=== PATIENT | male | born 1935 | race Caucasian/White ===

== ENCOUNTER 2016-08-02 15:49 | Inpatient (IN) ==
[2016-08-03] MEDS ORDERED: Bisacodyl 10 MG RECTAL SUPPOSITORY RC PRN (18:06)
[2016-08-03] MEDS: Sennosides/Docusate Sodium TABLET PO SCH (21:18)
[2016-08-03] MEDS: Furosemide 20 MG TABLET PO SCH (21:18)
[2016-08-03 22:55] LABS: Bilirubin,Urine Negative (Negative); Blood,Urine Small (Negative); Clarity,Urine Slightly Cloudy (Clear); Color,Urine Yellow (Yellow); Glucose,Urine (UA) Normal (Normal); Ketones,Urine Negative (Negative); Leukocyte Esterase,Urine Negative (Negative); Nitrite,Urine Negative (Negative); PH,Urine 5.5 pH Units (5.0-8.0); Protein,Urine Negative (Neg-Trace); Urobilinogen,Urine Normal (Normal)
[2016-08-04 06:12] LABS: Basophils # 0.1 K/mcL (0.0-0.2); Basophils % 1.3 %; Eosinophils # 0.2 K/mcL (0.0-0.6); Eosinophils % 4.1 %; Hemoglobin 10.7 g/dL (12.9-16.9); Immature Granulocytes % 0.2 % (0-4); Lymphocytes % 17.4 %; Mean Corpuscular HGB Conc 31.5 g/dL (31.6-35.5); Mean Corpuscular Hemoglobin 29.7 pg (28.0-33.3); Mean Corpuscular Volume 94.4 fL (83.0-100.0); Mean Platelet Volume 10.8 fL (9.4-12.4); Monocytes # 0.4 K/mcL (0.0-1.3); Monocytes % 6.5 %; Neutrophils # 3.9 K/mcL (1.6-8.9); Platelet Count 108 K/mcL (140-400); Red Cell Distribution Width 16.1 % (11.5-14.5); Segmented Neutrophils % 70.5 %
[2016-08-04 06:13] LABS: INR 1.2; Prothrombin Time 12.5 Seconds (9.4-12.1)
[2016-08-04 06:15] LABS: Activated Partial Thrombo Time 31.8 Seconds (26.0-36.0)
[2016-08-04 06:18] LABS: Calcium 8.9 mg/dL (8.6-10.8); Potassium 4.6 mEq/L (3.5-4.5)
[2016-08-04] MEDS: Sennosides/Docusate Sodium TABLET PO SCH ×2 (08:08→19:58)
[2016-08-04] MEDS: Aspirin 81 MG TAB.CHEW PO SCH (08:08)
[2016-08-04] MEDS: Furosemide 20 MG TABLET PO SCH ×2 (08:08→19:58)
[2016-08-04] MEDS: Ascorbic Acid 500 MG TABLET PO SCH (08:08)
[2016-08-04] MEDS: Metoprolol XL (24 HR) Succ 25 MG TAB.ER.24H PO SCH (08:08)
[2016-08-04] MEDS: Acetaminophen 325 MG TABLET PO PRN (08:17)
--- NOTE | 2016-08-04 11:54 | Internal Med History&Physical ---
Date of Encounter: 08/04/16 Time of Encounter: 11:52 Assessment and Plan (1) CVA (cerebral vascular accident) Current visit: Yes Status: Acute Patient has Qualifiers: CVA mechanism: thrombosis Qualified Code(s): I63.00 - Cerebral infarction due to thrombosis of unspecified precerebral artery Internal Medicine - H&P: HPI Chief complaint: CVA Admitted From: Hospital to Hospital Transfer Plans for Post Hospital Care: Home History of present illness: Mr. Canas is a 80 year old male Patient had been experiencing some vision changes and some ambulatory disabilities. Presented to the hospital was admitted then transferred here for rehabilitation. He had seventh nerve palsy although this seems improved he can close his eye now Past Med Surg Social Fam HX - Past Medical History Medical history: CHF, COPD, coronary artery disease, hyperlipidemia, hypertension, myocardial infarction, renal disease Psychiatric history: no psych history - Past Surgical History Surgical History: angioplasty/stent, carotid endarterectomy, cataract, coronary bypass (CABG), LE vascular intervention, pacemaker/AICD - Social History Smoking Status: Former smoker Smokeless Tobacco Status: No Alcohol use: occasionally Drug use: none - Family History Mother Living Status: Cause of : cardiac Internal Medicine - H&P: Meds Ascorbic Acid [Vitamin C with Chasity Hips] 1,000 mg PO DAILY 08/03/16 [History] Aspirin 81 mg PO DAILY 08/03/16 [History] Clopidogrel [Plavix] 75 mg PO DAILY 08/03/16 [History] Ferrous Sulfate [Iron] 325 mg PO DAILY 08/03/16 [History] Furosemide [Lasix] 20 mg PO BID 08/03/16 [History] Guaifenesin [Mucinex] 600 mg PO DAILY 08/03/16 [History] Lisinopril 2.5 mg PO DAILY 08/03/16 [History] Metoprolol Succinate 25 mg PO DAILY 08/03/16 [History] Omeprazole 20 mg PO DAILY 08/03/16 [History] Potassium Chloride [Klor-Con 10] 10 meq PO DAILY 08/03/16 [History] Simvastatin [Zocor] 20 mg PO HS 08/03/16 [History] Vitamin E 1,000 unit PO DAILY 08/03/16 [History] Allergies No Known Allergies Allergy (Verified 03/11/15 00:00) All Systems PM: A 10-system review of systems was performed and is negative for pertinent findings except as documented above in the HPI. - Constitutional Vitals: Temp Pulse Resp BP Pulse Ox 97.4 F L 67 16 169/83 96 08/04/16 07:00 08/04/16 07:00 08/04/16 07:00 08/04/16 07:00 08/04/16 07:00 - Head Head exam: Present: atraumatic, normal inspection, normocephalic - Neck Neck exam general surgery: Present: supple, trachea midline. Absent: lymphadenopathy - Respiratory Respiratory exam: Present: CTAB. Absent: accessory muscle use, rales, rhonchi, wheezes - Cardiovascular Cardiovascular exam: Present: RRR, +S1, +S2. Absent: diastolic murmur, gallop, rubs, systolic murmur - GI/Abdominal GI/Abdominal exam: Present: normal bowel sounds, soft, no peritoneal signs. Absent: distended, tenderness - Neurological Exam Neurological exam: Present: altered (Patient had seventh nerve palsy and was unable to completely shut his outside. Now with some effort he can shut his right eye. We are continuing use lubrication etc.), CN II-XII intact, oriented X3, no focal deficits. Absent: pronater drift, facial droop, speech deficit Internal Med - H&P Results - Labs CBC & Chem 7: 08/04/16 05:40 08/04/16 05:40 Labs: Short CBC 08/04/16 Range/Units 05:40 WBC 5.6 (4.3-11.1) K/mcL Hgb 10.7 L (12.9-16.9) g/dL Hct 34.0 L (37.5-50.1) % Plt Count 108 L (140-400) K/mcL Neutrophils # 3.9 (1.6-8.9) K/mcL BMP 08/04/16 05:40 Sodium 139 Potassium 4.6 H Chloride 106 Carbon Dioxide 26 BUN 28 H Creatinine 1.41 H Glucose 86 Calcium 8.9 Urine 08/03/16 Range/Units 22:00 Urine Color Yellow (Yellow) Urine Clarity Slightly Cloudy A (Clear) Urine pH 5.5 (5.0-8.0) pH Units Ur Specific [place] 1.020 (1.010-1.025) Urine Protein Negative (Neg-Trace) mg/dL Urine Glucose (UA) Normal (Normal) mg/dL Lab is stable
[2016-08-04] MEDS: Lacri-Lube 3.5 GM TUBE RIGHT EYE PRN (20:00)
[2016-08-05] MEDS: Ascorbic Acid 500 MG TABLET PO SCH (09:05)
[2016-08-05] MEDS: Aspirin 81 MG TAB.CHEW PO SCH (09:05)
[2016-08-05] MEDS: Metoprolol XL (24 HR) Succ 25 MG TAB.ER.24H PO SCH (09:05)
[2016-08-05] MEDS: Furosemide 20 MG TABLET PO SCH ×2 (09:05→20:17)
[2016-08-05] MEDS: Sennosides/Docusate Sodium TABLET PO SCH ×2 (09:05→20:16)
[2016-08-05] MEDS: Acetaminophen 325 MG TABLET PO PRN ×2 (09:13→20:17)
--- NOTE | 2016-08-05 10:19 | Internal Med Progress Note ---
Date of Encounter: 08/05/16 Time of Encounter: 10:16 - Assessment and plan (1) CVA (cerebral vascular accident) Current Visit: Yes Status: Acute Assessment and plan: Residual diplopia but is improving. Residual right facial droop. Difficulty would endurance and balance. PT and OT to continue to work on the above treatment improved ADLs Qualifiers: CVA mechanism: occlusion Precerebral and cerebral artery: middle cerebral artery Laterality of affected vessel: unspecified Qualified Code(s): I63.519 - Cerebral infarction due to unspecified occlusion or stenosis of unspecified middle cerebral artery (2) Diabetes Current Visit: Yes Status: Chronic Assessment and plan: Accu-Chek controlled. We will continue to monitor. Qualifiers: Diabetes mellitus type: type 2 Diabetes mellitus complication status: with unspecified complications Diabetes mellitus fci insulin use: with terminal system operator use Qualified Code(s): E11.8 - Type 2 diabetes mellitus with unspecified complications; Z79.4 - retirement (current) use of insulin - Time Spent With Patient less than 15 minutes - Subjective Interval history: Patient feeling better today. Visual abnormality improving. Still has some problems with endurance and balance. Still has dyspnea on exertion. No shortness of breath. No chest pain. No nausea vomiting. Good oral intake. - Constitutional Vitals: Temp Pulse Resp BP Pulse Ox 97.7 F 76 14 158/88 97 08/05/16 06:47 08/05/16 06:47 08/05/16 06:47 08/05/16 06:47 08/05/16 06:47 General appearance: Present: A&O X 3, pleasant, no acute distress - Respiratory Respiratory exam: Present: CTAB. Absent: accessory muscle use, rales, rhonchi, wheezes - Cardiovascular Cardiovascular exam: Present: RRR, +S1, +S2. Absent: diastolic murmur, gallop, rubs, systolic murmur - GI/Abdominal GI/Abdominal exam: Present: normal bowel sounds, soft, no peritoneal signs. Absent: distended, tenderness - Extremities Exam Extremities exam: Present: warm, radial pulses palpable and symetrical. Absent : calf tenderness, cyanotic, pedal edema - Expanded Neurological Exam Patient oriented to: Present: person, place Ataxia: Present: yes - Skin Skin exam: Present: dry, intact Internal Medicine: Result - Labs CBC & Chem 7: 08/04/16 05:40 02/03/17 05:40 - ABG Interpretation ABG results: PT/INR, D-dimer PT 12.5 Seconds (9.4-12.1) H 08/04/16 05:40 Consult Discharge Plan - Plan Referrals: NO,PCP [Primary Care Provider] -
[2016-08-06] MEDS: Ascorbic Acid 500 MG TABLET PO SCH (08:38)
[2016-08-06] MEDS: Aspirin 81 MG TAB.CHEW PO SCH (08:38)
[2016-08-06] MEDS: Sennosides/Docusate Sodium TABLET PO SCH ×2 (08:38→20:08)
[2016-08-06] MEDS: Furosemide 20 MG TABLET PO SCH ×2 (08:39→20:09)
[2016-08-06] MEDS: Metoprolol XL (24 HR) Succ 25 MG TAB.ER.24H PO SCH (08:39)
--- NOTE | 2016-08-06 11:10 | Internal Med Progress Note ---
Date of Encounter: 08/06/16 Time of Encounter: 11:09 - Assessment and plan (1) CVA (cerebral vascular accident) Current Visit: Yes Status: Acute Assessment and plan: Residual diplopia but is improving. Residual right facial droop. Difficulty would endurance and balance. PT and OT to continue to work on the above treatment improved ADLs Qualifiers: CVA mechanism: occlusion Precerebral and cerebral artery: middle cerebral artery Laterality of affected vessel: unspecified Qualified Code(s): I63.519 - Cerebral infarction due to unspecified occlusion or stenosis of unspecified middle cerebral artery (2) Diabetes Current Visit: Yes Status: Chronic Assessment and plan: Accu-Chek controlled. We will continue to monitor. Qualifiers: Diabetes mellitus type: type 2 Diabetes mellitus complication status: with unspecified complications Diabetes mellitus retirement insulin use: with medical terminologist use Qualified Code(s): E11.8 - Type 2 diabetes mellitus with unspecified complications; Z79.4 - intermediate (current) use of insulin - Subjective Interval history: Patient feeling better today. Visual abnormality improving. Still has some problems with endurance and balance. Still has dyspnea on exertion. No shortness of breath. No chest pain. No nausea vomiting. Good oral intake. - Constitutional Vitals: Temp Pulse Resp BP Pulse Ox 97.8 F 59 18 137/80 95 08/06/16 06:51 08/06/16 06:51 08/06/16 06:51 08/06/16 06:51 08/06/16 06:51 General appearance: Present: A&O X 3, pleasant, no acute distress - Respiratory Respiratory exam: Present: CTAB. Absent: accessory muscle use, rales, rhonchi, wheezes - Cardiovascular Cardiovascular exam: Present: RRR, +S1, +S2. Absent: diastolic murmur, gallop, rubs, systolic murmur - GI/Abdominal GI/Abdominal exam: Present: normal bowel sounds, soft, no peritoneal signs. Absent: distended, tenderness - Neurological Exam Neurological exam: Present: alert, facial droop Internal Medicine: Result - Labs CBC & Chem 7: 08/04/16 05:40 08/04/16 05:40 - ABG Interpretation ABG results: PT/INR, D-dimer PT 12.5 Seconds (9.4-12.1) H 08/04/16 05:40 Consult Discharge Plan - Plan Referrals: NO,PCP [Primary Care Provider] -
[2016-08-06] MEDS: Lacri-Lube 3.5 GM TUBE RIGHT EYE PRN ×2 (17:25→20:09)
[2016-08-06] MEDS: Acetaminophen 325 MG TABLET PO PRN (20:09)
[2016-08-07] MEDS: Acetaminophen 325 MG TABLET PO PRN ×3 (01:27→19:47)
[2016-08-07 05:25] LABS: Basophils # 0.1 K/mcL (0.0-0.2); Basophils % 0.9 %; Eosinophils # 0.2 K/mcL (0.0-0.6); Eosinophils % 3.5 %; Hematocrit 32.9 % (37.5-50.1); Hemoglobin 10.5 g/dL (12.9-16.9); Immature Granulocytes % 0.5 % (0-4); Lymphocytes % 17.2 %; Mean Corpuscular HGB Conc 31.9 g/dL (31.6-35.5); Mean Platelet Volume 11.4 fL (9.4-12.4); Monocytes # 0.5 K/mcL (0.0-1.3); Monocytes % 8.3 %; Platelet Count 141 K/mcL (140-400); Red Cell Distribution Width 16.4 % (11.5-14.5); Segmented Neutrophils % 69.6 %
[2016-08-07 05:39] LABS: Potassium 4.6 mEq/L (3.5-4.5)
[2016-08-07] MEDS: Metoprolol XL (24 HR) Succ 25 MG TAB.ER.24H PO SCH (09:32)
[2016-08-07] MEDS: Aspirin 81 MG TAB.CHEW PO SCH (09:32)
[2016-08-07] MEDS: Sennosides/Docusate Sodium TABLET PO SCH ×2 (09:32→19:48)
[2016-08-07] MEDS: Ascorbic Acid 500 MG TABLET PO SCH (09:32)
[2016-08-07] MEDS: Furosemide 20 MG TABLET PO SCH ×2 (09:33→19:48)
[2016-08-07] MEDS: Lacri-Lube 3.5 GM TUBE RIGHT EYE PRN ×2 (09:35→19:47)
--- NOTE | 2016-08-07 13:44 | Internal Med Progress Note ---
Date of Encounter: 08/07/16 Time of Encounter: 13:43 - Assessment and plan (1) CVA (cerebral vascular accident) Current Visit: Yes Status: Acute Qualifiers: CVA mechanism: occlusion Precerebral and cerebral artery: middle cerebral artery Laterality of affected vessel: unspecified Qualified Code(s): I63.519 - Cerebral infarction due to unspecified occlusion or stenosis of unspecified middle cerebral artery - Time Spent With Patient less than 15 minutes - Subjective Interval history: Mr. Canas is doing well with a walker and working with the therapist. He still has definite deficits with his seventh nerve palsy - Constitutional Vitals: Temp Pulse Resp BP Pulse Ox 97.8 F 63 18 131/75 94 L 08/07/16 08:53 08/07/16 08:53 08/07/16 08:53 08/07/16 08:53 08/07/16 08:53 General appearance: Present: A&O X 3, pleasant, no acute distress - Head Head exam: Present: atraumatic, normal inspection, normocephalic - Neck Neck exam general surgery: Present: supple, trachea midline. Absent: lymphadenopathy - Respiratory Respiratory exam: Present: CTAB. Absent: accessory muscle use, rales, rhonchi, wheezes - Cardiovascular Cardiovascular exam: Present: RRR, +S1, +S2. Absent: diastolic murmur, gallop, rubs, systolic murmur Internal Medicine: Result - Labs CBC & Chem 7: 08/07/16 04:35 08/07/16 04:35 Labs: Short CBC 08/07/16 Range/Units 04:35 WBC 5.8 (4.3-11.1) K/mcL Hgb 10.5 L (12.9-16.9) g/dL Hct 32.9 L (37.5-50.1) % Plt Count 141 (140-400) K/mcL Neutrophils # 4.0 (1.6-8.9) K/mcL BMP 08/07/16 04:35 Sodium 138 Potassium 4.6 H Chloride 99 Carbon Dioxide 30 H BUN 47 H D Creatinine 1.54 H Glucose 83 Calcium 9.0 I will have to watch his BUN and creatinine. He may have some chronic failure but I will follow-up - ABG Interpretation ABG results: PT/INR, D-dimer PT 12.5 Seconds (9.4-12.1) H 08/04/16 05:40 Consult Discharge Plan - Plan Referrals: NO,PCP [Primary Care Provider] -
[2016-08-08] MEDS: Sennosides/Docusate Sodium TABLET PO SCH ×2 (08:24→20:00)
[2016-08-08] MEDS: Ascorbic Acid 500 MG TABLET PO SCH (08:24)
[2016-08-08] MEDS: Aspirin 81 MG TAB.CHEW PO SCH (08:25)
[2016-08-08] MEDS: Acetaminophen 325 MG TABLET PO PRN ×2 (08:25→23:58)
[2016-08-08] MEDS: Metoprolol XL (24 HR) Succ 25 MG TAB.ER.24H PO SCH (08:25)
[2016-08-08] MEDS: Furosemide 20 MG TABLET PO SCH ×2 (08:25→20:00)
[2016-08-08] MEDS: Lacri-Lube 3.5 GM TUBE RIGHT EYE PRN ×2 (13:05→20:09)
--- NOTE | 2016-08-08 13:34 | Internal Med Progress Note ---
Date of Encounter: 08/08/16 Time of Encounter: 13:32 - Assessment and plan (1) CVA (cerebral vascular accident) Current Visit: Yes Status: Acute Assessment and plan: Patient still has a seventh nerve palsy but is working well with PT OT and TR. Qualifiers: CVA mechanism: occlusion Precerebral and cerebral artery: middle cerebral artery Laterality of affected vessel: unspecified Qualified Code(s): I63.519 - Cerebral infarction due to unspecified occlusion or stenosis of unspecified middle cerebral artery - Time Spent With Patient less than 15 minutes - Subjective Interval history: Mr. Canas is doing well with a walker and working with the therapist. He still has definite deficits with his seventh nerve palsy. Patient's only request today was an ointment for his eye. - Constitutional Vitals: Temp Pulse Resp BP Pulse Ox 97.7 F 67 18 134/81 93 L 08/08/16 07:50 08/08/16 07:50 08/08/16 07:50 08/08/16 07:50 08/08/16 07:50 General appearance: Present: A&O X 3, pleasant, no acute distress - Head Head exam: Present: atraumatic, normal inspection, normocephalic - Neck Neck exam general surgery: Present: supple, trachea midline. Absent: lymphadenopathy - Respiratory Respiratory exam: Present: CTAB. Absent: accessory muscle use, rales, rhonchi, wheezes - Cardiovascular Cardiovascular exam: Present: RRR, +S1, +S2. Absent: diastolic murmur, gallop, rubs, systolic murmur - GI/Abdominal GI/Abdominal exam: Present: normal bowel sounds, soft, no peritoneal signs. Absent: distended, tenderness Internal Medicine: Result - Labs CBC & Chem 7: 08/07/16 04:35 08/07/16 04:35 Labs: Follow-up lab will be done to follow BUN etc. - ABG Interpretation ABG results: PT/INR, D-dimer PT 12.5 Seconds (9.4-12.1) H 08/04/16 05:40 Consult Discharge Plan - Plan Referrals: NO,PCP [Primary Care Provider] -
[2016-08-09 05:50] LABS: Calcium 9.2 mg/dL (8.6-10.8); Potassium 4.6 mEq/L (3.5-4.5)
[2016-08-09] MEDS: Aspirin 81 MG TAB.CHEW PO SCH (08:16)
[2016-08-09] MEDS: Acetaminophen 325 MG TABLET PO PRN (08:16)
[2016-08-09] MEDS: Sennosides/Docusate Sodium TABLET PO SCH ×2 (08:16→21:14)
[2016-08-09] MEDS: Ascorbic Acid 500 MG TABLET PO SCH (08:16)
[2016-08-09] MEDS: Furosemide 20 MG TABLET PO SCH ×2 (08:16→21:13)
[2016-08-09] MEDS: Metoprolol XL (24 HR) Succ 25 MG TAB.ER.24H PO SCH (08:17)
[2016-08-09] MEDS: Lacri-Lube 3.5 GM TUBE RIGHT EYE PRN (08:21)
--- NOTE | 2016-08-09 13:52 | Internal Med Progress Note ---
Date of Encounter: 08/09/16 Time of Encounter: 13:50 - Assessment and plan (1) CVA (cerebral vascular accident) Current Visit: Yes Status: Acute Assessment and plan: Patient's working with PT OT TR on a daily basis Qualifiers: CVA mechanism: occlusion Precerebral and cerebral artery: middle cerebral artery Laterality of affected vessel: unspecified Qualified Code(s): I63.519 - Cerebral infarction due to unspecified occlusion or stenosis of unspecified middle cerebral artery - Time Spent With Patient less than 15 minutes - Subjective Interval history: Mr. Canas is doing well with a walker and working with the therapist. He still has definite deficits with his seventh nerve palsy. Patient's only request today was an ointment for his eye. He is requesting a driving exam which will be done by OT. I will make him recommendation. I will think the patient should be left alone nor do I believe he should be driving - Constitutional Vitals: Temp Pulse Resp BP Pulse Ox 97.0 F L 66 18 159/80 95 08/09/16 07:37 08/09/16 13:00 08/09/16 13:00 08/09/16 13:00 08/09/16 13:00 General appearance: Present: A&O X 3, pleasant, no acute distress - Head Head exam: Present: atraumatic, normal inspection, normocephalic - Neck Neck exam general surgery: Present: supple, trachea midline. Absent: lymphadenopathy - Respiratory Respiratory exam: Present: CTAB. Absent: accessory muscle use, rales, rhonchi, wheezes - Cardiovascular Cardiovascular exam: Present: RRR, +S1, +S2. Absent: diastolic murmur, gallop, rubs, systolic murmur Internal Medicine: Result - Labs CBC & Chem 7: 08/07/16 04:35 08/09/16 05:15 Labs: BMP 08/09/16 05:15 Sodium 137 Potassium 4.6 H Chloride 98 Carbon Dioxide 30 H BUN 48 H Creatinine 1.59 H Glucose 87 Calcium 9.2 - ABG Interpretation ABG results: PT/INR, D-dimer PT 12.5 Seconds (9.4-12.1) H 08/04/16 05:40 Consult Discharge Plan - Plan Referrals: NO,PCP [Primary Care Provider] -
--- NOTE | 2016-08-09 15:11 | Physcial Medicine-Consult Note ---
Date of Encounter: 08/10/16 Time of Encounter: 15:05 Physical Medicine - AP (1) CVA (cerebral vascular accident) Status: Acute Assessment and plan: 1. Rehabilitation: Mr. Canas is doing well with therapy. His balance has improved since admission. He is ambulating with a wheeled walker 115 with SBA. Patient fatigues, but recovers well after rest breaks. He was trialed with a cane for ambulation and was not safe at this time. Frequent LOB. Would recommend additional inpatient stay to address safe ambulation with a walker. No issues with dysphagia. Patient will continue with intensive PT/OT/TR to work on ADLs, endurance and safety. Plan for discharge to home 08/16/16. Code(s): I63.9 - Cerebral infarction, unspecified SNOMED Code(s): 991963810 Physical Medicine - HPI - Data of Consult Consult date: 08/09/16 Requesting Physician: Senthil Bauer DO Primary Care Provider: PCP NO - Consult Narrative Reason for consult: CVA History of present illness: Mr. Canas is a 80 year old male who was admitted for inpatient rehabilitation after sustaining a right cerebellar acute infarct with central hemorrhage. Patient has a PMHx significant for chronic afib, taking plavix and aspirin. Patient presented with complaints of right facial droop, unsteady gait, ataxia, and dysarthria. He was stabilized and transferred for inpatient rehabilitation. CC: Senthil Bauer DO Past Med Surg Social Fam - Past Medical History Medical history: CHF, COPD, coronary artery disease, hyperlipidemia, hypertension, myocardial infarction, renal disease Psychiatric history: no psych history - Past Surgical History Surgical History: angioplasty/stent, carotid endarterectomy, cataract, coronary bypass (CABG), LE vascular intervention, pacemaker/AICD - Social History Smoking Status: Former smoker Smokeless Tobacco Status: No Alcohol use: occasionally Drug use: none - Family History Mother Living Status: Cause of : cardiac Medications and Allergies Ascorbic Acid [Vitamin C with Chasity Hips] 1,000 mg PO DAILY 08/03/16 [History] Aspirin 81 mg PO DAILY 08/03/16 [History] Clopidogrel [Plavix] 75 mg PO DAILY 08/03/16 [History] Ferrous Sulfate [Iron] 325 mg PO DAILY 08/03/16 [History] Furosemide [Lasix] 20 mg PO BID 08/03/16 [History] Guaifenesin [Mucinex] 600 mg PO DAILY 08/03/16 [History] Lisinopril 2.5 mg PO DAILY 08/03/16 [History] Metoprolol Succinate 25 mg PO DAILY 08/03/16 [History] Omeprazole 20 mg PO DAILY 08/03/16 [History] Potassium Chloride [Klor-Con 10] 10 meq PO DAILY 08/03/16 [History] Simvastatin [Zocor] 20 mg PO HS 08/03/16 [History] Vitamin E 1,000 unit PO DAILY 08/03/16 [History] Allergies No Known Allergies Allergy (Verified 03/11/15 00:00) - Constitutional Constitutional: Present: fatigue - Cardiovascular Cardiovascular: Absent: chest pain, chest pain at rest, chest pain with activity , diaphoresis, dyspnea - Respiratory Respiratory: Absent: cough, dyspnea - Gastrointestinal Gastrointestinal: Absent: abdominal pain - Musculoskeletal Musculoskeletal: Absent: abnormal gait, muscle weakness - Neurological Neurological: Present: abnormal gait Physical Medicine - Exam - Constitutional Vitals: Temp Pulse Resp BP Pulse Ox 97.0 F L 66 18 159/80 95 08/09/16 07:37 08/09/16 13:00 08/09/16 13:00 08/09/16 13:00 08/09/16 13:00 - Head Head exam: Present: atraumatic, normal inspection Additional comments: Patient is alert and oriented. Answers questions appropriately. Follows multistep commands appropriately. Mild right facial droop. Right eye does not close completely. EOMI. No visual field deficits. No double vision. - Respiratory Respiratory exam: Present: CTAB - Cardiovascular Cardiovascular exam: Present: RRR - GI/Abdominal GI/Abdominal exam: Present: normal bowel sounds, soft. Absent: tenderness - Extremities Exam Extremities exam: Present: full ROM. Absent: calf tenderness Additional comments: Motor strength is 5/5 in the bilateral upper and lower limbs. Upper and lower limb reflexes are unelicitable. Physical Medicine - Results - Labs CBC & Chem 7: 08/07/16 04:35 08/10/16 05:05 Labs: BMP 08/09/16 05:15 Sodium 137 Potassium 4.6 H Chloride 98 Carbon Dioxide 30 H BUN 48 H Creatinine 1.59 H Glucose 87 Calcium 9.2 Consult Discharge Plan - Plan Referrals: NO,PCP [Primary Care Provider] -
[2016-08-10 05:48] LABS: Calcium 9.1 mg/dL (8.6-10.8); Potassium 4.3 mEq/L (3.5-4.5)
[2016-08-10] MEDS: Sennosides/Docusate Sodium TABLET PO SCH ×2 (08:47→20:46)
[2016-08-10] MEDS: Ascorbic Acid 500 MG TABLET PO SCH (08:47)
[2016-08-10] MEDS: Aspirin 81 MG TAB.CHEW PO SCH (08:47)
[2016-08-10] MEDS: Furosemide 20 MG TABLET PO SCH ×2 (08:47→20:45)
[2016-08-10] MEDS: Metoprolol XL (24 HR) Succ 25 MG TAB.ER.24H PO SCH (08:47)
[2016-08-10] MEDS: Lacri-Lube 3.5 GM TUBE RIGHT EYE PRN ×2 (08:51→20:46)
--- NOTE | 2016-08-10 14:05 | Internal Med Progress Note ---
Date of Encounter: 08/10/16 Time of Encounter: 14:05 - Assessment and plan (1) CVA (cerebral vascular accident) Current Visit: Yes Status: Acute Assessment and plan: Patient has CVA he is improving but were concerned about him being alone he still fall risk and also have a driving test tomorrow. Mobile opinion that he should not be independent. Qualifiers: CVA mechanism: occlusion Precerebral and cerebral artery: middle cerebral artery Laterality of affected vessel: unspecified Qualified Code(s): I63.519 - Cerebral infarction due to unspecified occlusion or stenosis of unspecified middle cerebral artery - Time Spent With Patient less than 15 minutes - Subjective Interval history: Mr. Canas is declined stating any longer be discharged tomorrow this family - Constitutional Vitals: Temp Pulse Resp BP Pulse Ox 97.0 F L 62 16 138/74 95 08/10/16 07:18 08/10/16 07:18 08/10/16 07:18 08/10/16 07:18 08/10/16 07:18 General appearance: Present: A&O X 3, pleasant, no acute distress - Head Head exam: Present: atraumatic, normal inspection, normocephalic - Neck Neck exam general surgery: Present: supple, trachea midline. Absent: lymphadenopathy - Respiratory Respiratory exam: Present: CTAB. Absent: accessory muscle use, rales, rhonchi, wheezes - Cardiovascular Cardiovascular exam: Present: RRR, +S1, +S2. Absent: diastolic murmur, gallop, rubs, systolic murmur - GI/Abdominal GI/Abdominal exam: Present: normal bowel sounds, soft, no peritoneal signs. Absent: distended, tenderness Internal Medicine: Result - Labs CBC & Chem 7: 08/07/16 04:35 08/10/16 05:05 Labs: BMP 08/10/16 05:05 Sodium 138 Potassium 4.3 Chloride 98 Carbon Dioxide 29 BUN 51 H Creatinine 1.80 H Glucose 85 Calcium 9.1 Recheck BUN/creatinine - ABG Interpretation ABG results: PT/INR, D-dimer PT 12.5 Seconds (9.4-12.1) H 08/04/16 05:40 - VTE Documentation of Mechanical Device: Graduated compression elastic hosiery Consult Discharge Plan - Plan Referrals: NO,PCP [Primary Care Provider] -
[2016-08-11 05:38] LABS: Calcium 8.9 mg/dL (8.6-10.8); Potassium 4.4 mEq/L (3.5-4.5)
[2016-08-11 07:18] VITALS: BP 139/85
[2016-08-11] MEDS: Aspirin 81 MG TAB.CHEW PO SCH (08:44)
[2016-08-11] MEDS: Ascorbic Acid 500 MG TABLET PO SCH (08:44)
[2016-08-11] MEDS: Furosemide 20 MG TABLET PO SCH (08:44)
[2016-08-11] MEDS: Metoprolol XL (24 HR) Succ 25 MG TAB.ER.24H PO SCH (08:44)
[2016-08-11] MEDS: Sennosides/Docusate Sodium TABLET PO SCH (08:44)
--- NOTE | 2016-08-11 13:42 | Discharge Summary ---
Date of Encounter: 08/11/16 Time of Encounter: 13:40 - Discharge Diagnosis (1) CVA (cerebral vascular accident) Priority: Primary Status: Acute Comments: CVA patient's doing well going home with the family today. He did have his driving test with the OT department and he did not past. Let the son know and that he should not be driving at this time. Qualifiers: CVA mechanism: occlusion Precerebral and cerebral artery: middle cerebral artery Laterality of affected vessel: unspecified Qualified Code(s): I63.519 - Cerebral infarction due to unspecified occlusion or stenosis of unspecified middle cerebral artery - Discharge Medications Home Medications: Ascorbic Acid [Vitamin C with Chasity Hips] 1,000 mg PO DAILY 08/03/16 [History] Aspirin 81 mg PO DAILY 08/03/16 [History] Clopidogrel [Plavix] 75 mg PO DAILY 08/03/16 [History] Ferrous Sulfate [Iron] 325 mg PO DAILY 08/03/16 [History] Furosemide [Lasix] 20 mg PO BID 08/03/16 [History] Guaifenesin [Mucinex] 600 mg PO DAILY 08/03/16 [History] Lisinopril 2.5 mg PO DAILY 08/03/16 [History] Metoprolol Succinate 25 mg PO DAILY 08/03/16 [History] Omeprazole 20 mg PO DAILY 08/03/16 [History] Potassium Chloride [Klor-Con 10] 10 meq PO DAILY 08/03/16 [History] Simvastatin [Zocor] 20 mg PO HS 08/03/16 [History] Vitamin E 1,000 unit PO DAILY 08/03/16 [History] Allergies/Adverse Reactions: Allergies No Known Allergies Allergy (Verified 03/11/15 00:00) Date of admission: 08/03/16 15:49 Primary care physician: PCP NO Consults: 08/03/16 17:41 Consult to Occupational Therapy [CONS] Routine Comment: Evaluate, develop and implement POC Consult to Physical Medicine/Rehab [CONS] Routine Reason for Consult: s/p cva Call Completed: Yes Consult to Physical Therapy [CONS] Routine Comment: Evaluate, develop and implement POC Consult to Recreational Therapy [CONS] Routine Comment: Evaluate, develop and implement POC Consult to Road Consultant [CONS] Routine Reason for SW Consult: d/c planning. follow up therapy after d/c Consult to Speech Therapy [CONS] Routine Comment: Evaluate, develop and implement POC Reason for Consult: s/p cva Call Completed: Yes 08/03/16 17:52 Consult to Physician [CONS] Routine Consulting Provider: Alisson Haro Reason for Consult: s/p cva Call Completed: Yes Discharging clinician: Senthil Bauer Anticipated date of discharge: 08/11/16 - Patient Status Disposition: Home, Self-Care Condition: Good Functional capacity at discharge: uses cane/walker Overall status at discharge: patient is progressing back to baseline - Discharge Instructions Follow Up With: Steve Pulido MD [Partnered Physician] - 08/17/16 10:30 am NO,PCP [Primary Care Provider] - - Diet and Activity Activity: ambulate only with your walker Diet: advance to your usual diet Interval History: She was transferred here after being admitted to the hospital and diagnosed with a CVA. He still has some vision problems and he should see another flotation operator. We will try to set that up Hospital course: Mr. Canas is a 80 year old male patient does work with PT OT TR speech. He still has some trouble with vision and there is still some mild deficits of the seventh cranial nerve. He is able to ambulate at speed up and down the [place] with no problem with a walker. - Time Spent with Patient Total time spent providing and/or coordinating discharge services: - Constitutional Vitals: Temp Pulse Resp BP Pulse Ox 98.0 F 65 16 139/85 95 08/11/16 07:18 08/11/16 07:18 08/11/16 07:18 08/11/16 07:18 08/11/16 07:18 General appearance: Present: A&O X 3, pleasant, no acute distress - Head Head exam: Present: atraumatic, normal inspection, normocephalic - Neck Neck exam general surgery: Present: supple, trachea midline. Absent: lymphadenopathy - Respiratory Respiratory exam: Present: CTAB. Absent: accessory muscle use, rales, rhonchi, wheezes - Cardiovascular Cardiovascular exam: Present: RRR, +S1, +S2. Absent: diastolic murmur, gallop, rubs, systolic murmur - VTE Documentation of Mechanical Device: Graduated compression elastic hosiery
== END 2016-08-11 15:30 | disposition home or self-care (01) | DRG 57 ==
LOC: INPGRE 08-03 15:49
PROVIDERS: ADMIT Internal Medicine; ATTEND Internal Medicine

== ENCOUNTER 2019-01-14 11:39 | Inpatient (IN) ==
--- NOTE | 2019-01-15 14:29 | Internal Med History&Physical ---
Date of Encounter: 01/15/19 Time of Encounter: 14:18 Assessment and Plan (1) Gangrene of toe of left foot Current visit: Yes Status: Acute Patient was treated at [facility] for gangrene and osteomyelitis of the second toe on his left foot. Toe appears darkened and necrotic in appearance. Patient states that his toe is very tender to touch. Patient continues on doxycycline for the next 4 days. Patient is continue follow up with his vascular surgeon. We will continue with current medications. Will evaluate patient's pain medicine. (2) CHF exacerbation Current visit: Yes Status: Acute Patient with a history of severe CHF. Patient with ICD/pacemaker in place. States that he is not a surgical candidate due to his CHF. Currently his lungs are clear. No pedal edema is noted. Patient denies any palpitations or chest discomforts. We will continue with his current medications. Qualifiers: Heart failure type: systolic Qualified Code(s): I50.23 - Acute on chronic systolic (congestive) heart failure (3) COPD exacerbation Current visit: Yes Status: Acute No acute issues. Patient remains on oxygen and states a history of oxygen dependency. Patient denies any dyspnea or productive cough. We will continue with current medications (4) Chronic kidney disease, stage 3 Current visit: Yes Status: Chronic No acute issues at this time. We will review patient's labs in the morning and continue with current medications. (5) Urinary obstruction Current visit: Yes Status: Chronic Patient performs self cathetering at home due to a long history of BPH. We will continue with current plan of care and monitor for signs of UTI. (6) Atrial fibrillation Current visit: No Status: Chronic No acute issues. Patient's heart rate remains controlled with ventricular rate less than 100. We will continue with current medications. Patient will remain on Lovenox Qualifiers: Atrial fibrillation type: paroxysmal Qualified Code(s): I48.0 - Paroxysmal atrial fibrillation (7) CAD (coronary artery disease) Current visit: Yes Status: Acute He states long history of coronary artery disease to include bypass surgery and coronary stents. Patient states that he has had no palpitations or chest discomforts. We will continue with current medications and monitor closely Qualifiers: Coronary Disease-Associated Artery/Lesion type: [place] artery [place] vs. transplanted heart: [place] heart Associated angina: without angina Qualified Code(s): I25.10 - Atherosclerotic heart disease of [place] coronary artery without angina pectoris (8) GERD (gastroesophageal reflux disease) Current visit: Yes Status: Chronic Patient states a long history of peptic ulcer disease to include bleeding ulcerations past. Patient will continue on Protonix. Qualifiers: Esophagitis presence: without esophagitis Qualified Code(s): K21.9 - Gastro-esophageal reflux disease without esophagitis Internal Medicine - H&P: HPI Chief complaint: weakness Admitted From: Hospital to Hospital Transfer Plans for Post Hospital Care: Home History of present illness: Mr. Canas is a 83 year old male, who was treated at [facility] for osteomyelitis of the second left toe. Patient has been treating a nonhealing ulcer of the left second toe for over a year. Patient states that he had had a fall at home prior to his admission during which time he had a laceration on the left anterior leg which required treatment at [facility] locally. After treatment patient was discharged to home. Over the period of several days began to develop pain to his left foot and also had developed hypotension. Patient has a long history of severe CHF, CAD, COPD, home oxygen dependency, ICD/pacemaker, CVA, atrial fibrillation, PUD, BPH and severe PVD. Patient was reevaluated by Jeannette and found to have osteomyelitis of the second toe and was transferred to [facility] for further evaluation and treatment. Patient was treated with IV antibiotics during his stay he continues on oral doxycycline for the next 4 days. Patient currently states that he has moderate pain to the left second toe which currently appears darkened and necrotic. Patient states that he was told that he was not a surgical candidate at this time and described a treatment plan by [facility] in which he would auto amputate the toe. Patient states that he was told he was a poor surgical candidate due to his severe CHF and pulmonary status. Patient appears relaxed and denies any dyspnea, palpitations or chest discomforts. Patient states that he has oxygen dependency but can usually ambulate greater than 100 feet before he becomes dyspneic. Patient states usually he develops claudication to the legs after ambulating distances. Hemal cardoso states long history of BPH and that he self catheters several times daily. Patient denies any other issues, but does state that he has had increased generalized weakness since his hospitalization. Past Med Surg Social Fam HX - Past Medical History Medical history: atrial fibrillation, cardiomyopathy, CHF, COPD, coronary artery disease, CVA, GI bleed, hyperlipidemia, hypertension Additional medical history: R eye droop from history of CVA, umbilical hernia. Psychiatric history: no psych history - Past Surgical History Surgical History: angioplasty/stent, carotid endarterectomy, cataract, coronary bypass (CABG), LE vascular intervention, orthopedic, other, pacemaker/AICD Additional surgical history: L carotid endoartectomy, left iliofemoral, multiple cardiac stents (unsure of how many), pacer, TPA administered for CVA. - Social History Smoking Status: Former smoker Smokeless Tobacco Status: No Alcohol use: none Drug use: none - Family History Mother Adopted: No Family Member Ethnicity: Non- Living Status: Hx Family Cardiac Disorders: Yes (Heart disease) Hx Family Respiratory Disorders: Yes Hx Family Cancer: Yes (Colon Cancer) Hx Family GI Disorders: No Hx Family Endocrine Disorder: No Hx Family Neuromuscular Disorders: No Hx Family Neurologic Disorders: No Hx Family HEENT Disorders: No Hx Family Autoimmune Disorders: No Brother Living Status: Still Living Hx Family Cardiac Disorders: Yes (HTN, PA) Internal Medicine - H&P: Meds Ascorbic Acid [Vitamin C with Chasity Hips] 1,000 mg PO DAILY 08/03/16 [History] Ferrous Sulfate [Iron] 325 mg PO DAILY@1200 08/03/16 [History] Simvastatin [Zocor] 20 mg PO HS 08/03/16 [History] Vitamin E 1,000 unit PO DAILY 08/03/16 [History] Loratadine [Allergy Relief] 10 mg PO DAILY PRN 06/12/17 [History] Cholecalciferol (D-3) [Vitamin D] 1,000 unit PO DAILY 11/13/17 [History] Aspirin Enteric Coated [Aspirin EC] 81 mg PO DAILY tablet. 11/23/17 [Rx] Clopidogrel Bisulfate [Plavix] 75 mg PO DAILY 30 Days #30 tablet 11/23/17 [Rx] Pantoprazole Sodium [Protonix] 40 mg PO BID 03/19/18 [History] Metoprolol XL (24 HR) Succ [Toprol Xl] 25 mg PO DAILY 06/01/18 [History] Lisinopril [Zestril] 5 mg PO DAILY 07/06/18 [History] Albuterol Sulfate [Proventil Inhaler] 2 puff IH Q6HR PRN 12/25/18 [History] Docusate [Colace] 100 mg PO DAILY PRN 12/25/18 [History] Simethicone [Gas-X] 80 mg PO QID PRN 12/25/18 [History] Furosemide [Lasix] 40 mg PO DAILY #30 tablet 12/27/18 [Rx] Spironolactone [Aldactone] 25 mg PO DAILY #30 tablet 12/27/18 [Rx] Allergy/AdvReac Type Severity Reaction Status Date / Time No Known Allergies Allergy Verified 12/03/18 14:44 All Systems PM: A 10-system review of systems was performed and is negative for pertinent findings except as documented above in the HPI. - Constitutional Constitutional: as per HPI, no chills, no fever(s), no night sweats - EENT Eyes: as per HPI, no change in vision, no discharge, no pain, no photophobia Ears: as per HPI, no ear discharge, no ear pain, no tinnitus Nose, mouth and throat: as per HPI, no dysphagia, no nasal discharge, no neck pain, no sore throat - Breasts Breasts: as per HPI - Cardiovascular Cardiovascular ROS IM: as per HPI, no chest pain, no diaphoresis, no dyspnea, no lightheadedness, no palpitations, no syncope - Respiratory Respiratory: as per HPI, no cough, no dyspnea, no wheezing, no excessive phlegm production - Gastrointestinal Gastrointestinal: as per HPI, no abdominal pain, no diarrhea, no hematemesis, no hematochezia, no melena, no nausea, no vomiting - Genitourinary Genitourinary ROS male: as per HPI - Musculoskeletal Musculoskeletal ROS IM: as per HPI, no numbness, no tingling - Integumentary Integumentary IM: as per HPI, no rash, no unusual bruising - Neurological Neurological ROS: as per HPI, no confusion, no convulsions, no focal weakness, no numbness, no tingling, no tremor(s) - Psychiatric Psychiatric: as per HPI - Hematologic/Lymphatic Hematologic/Lymphatic: no easy bruising - Constitutional General appearance: Present: A&O X 3, pleasant - Head Head exam: Present: atraumatic, normocephalic - Eye Eye exam: Present: PERRL, conjuntiva pink, sclera anicteric Pupils: Present: PERRL - Neck Neck exam general surgery: Present: supple, trachea midline. Absent: lymphadenopathy - Respiratory Respiratory exam: Present: CTAB. Absent: accessory muscle use, rales, rhonchi, wheezes - Cardiovascular Cardiovascular exam: Present: irregular rhythm, RRR, +S1, +S2, systolic murmur. Absent: diastolic murmur, gallop, rubs - GI/Abdominal GI/Abdominal exam: Present: normal bowel sounds, soft, no peritoneal signs. Absent: distended, tenderness - Extremities Exam Extremities exam: Present: warm, radial pulses palpable and symmetrical. Absent: calf tenderness, cyanotic, pedal edema Additional comments: Patient's left second toe appears darkened and is very painful to touch. - Neurological Exam Neurological exam: Present: CN II-XII intact, oriented X3, no focal deficits. Absent: pronater drift, facial droop, speech deficit - Skin Skin exam: Present: dry, intact
[2019-01-15] MEDS: Acetaminophen 325 MG TABLET PO PRN (22:04)
[2019-01-15] MEDS: Ascorbic Acid 500 MG TABLET PO SCH (22:05)
[2019-01-15] MEDS: Doxycycline 100 MG CAPSULE PO SCH (22:05)
[2019-01-16] MEDS: *HR* Enoxaparin 30 MG/0.3 ML SYRINGE SQ SCH (05:22)
[2019-01-16] MEDS: Cholecalciferol (D-3) 1,000 UNIT (25MCG) TABLET PO SCH (08:53)
[2019-01-16] MEDS: Loratadine 10 MG TABLET PO SCH (08:53)
[2019-01-16] MEDS: Vitamin E 200 UNIT (90MG) CAPSULE PO SCH (08:53)
[2019-01-16] MEDS: Ascorbic Acid 500 MG TABLET PO SCH ×2 (08:53→20:49)
[2019-01-16] MEDS: Furosemide 40 MG TABLET PO SCH (08:53)
[2019-01-16] MEDS: Doxycycline 100 MG CAPSULE PO SCH ×2 (08:53→20:48)
[2019-01-16] MEDS: Aspirin Enteric Coated 81 MG Tablet PO SCH (08:53)
[2019-01-16] MEDS: Metoprolol XL (24 HR) Succ 25 MG TAB.ER.24H PO SCH (08:53)
--- NOTE | 2019-01-16 12:39 | Internal Med Progress Note ---
Date of Encounter: 01/16/19 Time of Encounter: 12:37 - Assessment and plan (1) Gangrene Current Visit: Yes Status: Chronic Assessment and plan: Left toe. Follow up with infectious disease as scheduled. (2) Urinary obstruction Current Visit: Yes Status: Chronic Assessment and plan: Continue to self cath. Patient states he is in this for many years due to BPH. (3) Atrial fibrillation Current Visit: Yes Status: Chronic Assessment and plan: Rate and rhythm stable. Continue current medication. Continue Lovenox. Qualifiers: Atrial fibrillation type: paroxysmal Qualified Code(s): I48.0 - Paroxysmal atrial fibrillation (4) CAD (coronary artery disease) Current Visit: Yes Status: Acute Assessment and plan: Stable. Denies chest pain. Continue current medication. Qualifiers: Coronary Disease-Associated Artery/Lesion type: [place] artery [place] vs. transplanted heart: [place] heart Associated angina: without angina Qualified Code(s): I25.10 - Atherosclerotic heart disease of [place] coronary artery without angina pectoris (5) CKD (chronic kidney disease) Current Visit: Yes Status: Chronic Assessment and plan: Stable. Monitor labs. Avoid nephrotoxic agents. Qualifiers: Chronic kidney disease stage: stage 3 (moderate) Qualified Code(s): N18.3 - Chronic kidney disease, stage 3 (moderate) (6) CHF (congestive heart failure) Current Visit: Yes Status: Chronic Assessment and plan: Stable. Continue current medication. Monitor for decompensation. Qualifiers: Heart failure type: systolic Heart failure chronicity: chronic Qualified Code(s): I50.22 - Chronic systolic (congestive) heart failure - Time Spent With Patient less than 15 minutes - Subjective Interval history: Patient lying in bed. Has been participating well with therapy. Maintaining appetite and hydration, denies fever, chills, nausea vomiting or diarrhea. Denies shortness of breath or chest pain. Denies any pain. - Constitutional Vitals: Temp Pulse Resp BP Pulse Ox 98.8 F 65 16 121/65 96 01/16/19 11:00 01/16/19 11:00 01/16/19 11:00 01/16/19 11:00 01/16/19 11:00 General appearance: Present: A&O X 3, pleasant, no acute distress, answers questions appropriately - Head Head exam: Present: atraumatic, normocephalic - Eye Eye exam: Present: PERRL, conjuntiva pink, sclera anicteric Pupils: Present: PERRL - Neck Neck exam general surgery: Present: supple, trachea midline. Absent: lymphadenopathy - Respiratory Respiratory exam: Present: CTAB. Absent: accessory muscle use, rales, rhonchi, wheezes Additional comments: O2 per nasal cannula, diminished bilateral basis. - Cardiovascular Cardiovascular exam: Present: RRR, +S1, +S2. Absent: diastolic murmur, gallop, rubs, systolic murmur - GI/Abdominal GI/Abdominal exam: Present: normal bowel sounds, soft, no peritoneal signs. Absent: distended, tenderness - Extremities Exam Extremities exam: Present: warm, radial pulses palpable and symmetrical. Absent: calf tenderness, cyanotic, pedal edema Additional comments: Left foot dressing dry and intact. - Neurological Exam Neurological exam: Present: CN II-XII intact, oriented X3, no focal deficits. Absent: pronater drift, facial droop, speech deficit - Skin Skin exam: Present: dry, intact Consult Discharge Plan - Plan Referrals: Mukesh Garcia MD [Primary Care Provider] -
[2019-01-16] MEDS: Acetaminophen 325 MG TABLET PO PRN (20:48)
[2019-01-17] MEDS: *HR* Enoxaparin 30 MG/0.3 ML SYRINGE SQ SCH (06:11)
[2019-01-17] MEDS: Ascorbic Acid 500 MG TABLET PO SCH ×2 (08:51→20:55)
[2019-01-17] MEDS: Aspirin Enteric Coated 81 MG Tablet PO SCH (08:51)
[2019-01-17] MEDS: Furosemide 40 MG TABLET PO SCH (08:51)
[2019-01-17] MEDS: Cholecalciferol (D-3) 1,000 UNIT (25MCG) TABLET PO SCH (08:51)
[2019-01-17] MEDS: Loratadine 10 MG TABLET PO SCH (08:51)
[2019-01-17] MEDS: Metoprolol XL (24 HR) Succ 25 MG TAB.ER.24H PO SCH (08:51)
[2019-01-17] MEDS: Vitamin E 200 UNIT (90MG) CAPSULE PO SCH (08:51)
[2019-01-17] MEDS: Doxycycline 100 MG CAPSULE PO SCH ×2 (08:52→20:55)
[2019-01-17] MEDS: Acetaminophen 325 MG TABLET PO PRN ×3 (09:08→20:55)
--- NOTE | 2019-01-17 09:49 | Internal Med Progress Note ---
Date of Encounter: 01/17/19 Time of Encounter: 09:47 - Assessment and plan (1) Gangrene of toe of left foot Current Visit: Yes Status: Acute Assessment and plan: No acute issues. Patient continues with complaints of pain to his right foot which he states is at 45/10 level of pain. No changes in exam of right foot. Patient continues to ambulate through physical therapy and tolerating well. We will continue with current plan of care (2) CHF exacerbation Current Visit: Yes Status: Acute Assessment and plan: No acute issues. Patient's lungs remain fairly clear with fine basilar rales. Respiratory effort appears relaxed. Denies any dyspnea or palpitations. We will continue with current medications and therapy Qualifiers: Heart failure type: systolic Qualified Code(s): I50.23 - Acute on chronic systolic (congestive) heart failure (3) COPD exacerbation Current Visit: Yes Status: Acute Assessment and plan: No acute issues. Lungs are fairly clear with fine posterior rales. No productive cough. No complaints of dyspnea while at rest. We will continue with current bronchodilators and medications. (4) Chronic kidney disease, stage 3 Current Visit: Yes Status: Chronic Assessment and plan: No acute issues. We will continue to monitor patient's renal status serial labs. With current medications. (5) Atrial fibrillation Current Visit: Yes Status: Chronic Qualifiers: Atrial fibrillation type: paroxysmal Qualified Code(s): I48.0 - Paroxysmal atrial fibrillation (6) CAD (coronary artery disease) Current Visit: Yes Status: Acute Assessment and plan: No acute issues. Patient denies any chest discomforts or palpitations. Heart rate continues with controlled rate less than 100. We will continue with current therapy and medications Qualifiers: Coronary Disease-Associated Artery/Lesion type: [place] artery [place] vs. transplanted heart: [place] heart Associated angina: without angina Qualified Code(s): I25.10 - Atherosclerotic heart disease of [place] coronary artery without angina pectoris - Time Spent With Patient less than 15 minutes - Subjective Interval history: Patient appears relaxed but currently states that he continues to have a throbbing type pain to his right foot and second toe. Patient with history of severe peripheral vascular disease and currently has his right toe appearing necrotic. Patient states that his pain is at 45/10 level of pain. Denies any current issues. States that his pulmonary status currently is stable and denies any dyspnea or productive cough. - Constitutional Vitals: Temp Pulse Resp BP Pulse Ox 97.5 F L 72 14 154/71 99 01/17/19 06:46 01/17/19 06:46 01/17/19 06:46 01/17/19 06:46 01/17/19 06:46 General appearance: Present: A&O X 3, pleasant, no acute distress, answers questions appropriately - Head Head exam: Present: atraumatic, normocephalic - Eye Eye exam: Present: PERRL, conjuntiva pink, sclera anicteric Pupils: Present: PERRL - Neck Neck exam general surgery: Present: supple, trachea midline. Absent: lymphadenopathy - Respiratory Respiratory exam: Present: decreased breath sounds, CTAB. Absent: accessory muscle use, rales, rhonchi, wheezes - Cardiovascular Cardiovascular exam: Present: irregular rhythm, RRR, +S1, +S2, systolic murmur. Absent: diastolic murmur, gallop, rubs - GI/Abdominal GI/Abdominal exam: Present: normal bowel sounds, soft, no peritoneal signs. Absent: distended, tenderness - Extremities Exam Extremities exam: Present: warm, radial pulses palpable and symmetrical. Absent: calf tenderness, cyanotic, pedal edema Additional comments: Right foot with second toe appearing darkened and possibly necrotic. - Neurological Exam Neurological exam: Present: CN II-XII intact, oriented X3, no focal deficits. Absent: pronater drift, facial droop, speech deficit - Skin Skin exam: Present: dry, intact Consult Discharge Plan - Plan Referrals: Mukesh Garcia MD [Primary Care Provider] -
[2019-01-17 12:02] LABS: Basophils % 0.4 %; Eosinophils # 0.1 K/mcL (0.0-0.6); Eosinophils % 1.8 %; Hematocrit 31.7 % (37.5-50.1); Hemoglobin 9.5 g/dL (12.9-16.9); Immature Granulocytes % 0.6 % (0-4); Lymphocytes # 0.6 K/mcL (0.6-4.6); Lymphocytes % 8.3 %; Mean Corpuscular Hemoglobin 29.5 pg (28.0-33.3); Mean Corpuscular Volume 98.4 fL (83.0-100.0); Mean Platelet Volume 10.4 fL (9.4-12.4); Monocytes # 0.5 K/mcL (0.0-1.3); Monocytes % 7.4 %; Neutrophils # 5.5 K/mcL (1.6-8.9); Platelet Count 170 K/mcL (140-400); Red Blood Count 3.22 M/mcL (4.19-5.50); Red Cell Distribution Width 17.9 % (11.5-14.5); Segmented Neutrophils % 81.5 %; White Blood Count 6.7 K/mcL (4.3-11.1)
[2019-01-17 12:20] LABS: Albumin 3.6 g/dL (3.5-5.7); Albumin/Globulin Ratio 0.9 (1.1-2.2); Bilirubin,Total 0.7 mg/dL (0.3-1.0); Calcium 8.8 mg/dL (8.6-10.3); Globulin 3.8 g/dL (2.4-3.5); Potassium 4.1 mEq/L (3.5-5.1); Total Protein 7.4 g/dL (6.4-8.9)
[2019-01-18] MEDS: *HR* Enoxaparin 30 MG/0.3 ML SYRINGE SQ SCH (05:55)
[2019-01-18] MEDS: Acetaminophen 325 MG TABLET PO PRN ×3 (06:02→20:47)
[2019-01-18] MEDS: Loratadine 10 MG TABLET PO SCH (08:38)
[2019-01-18] MEDS: Aspirin Enteric Coated 81 MG Tablet PO SCH (08:38)
[2019-01-18] MEDS: Furosemide 40 MG TABLET PO SCH (08:38)
[2019-01-18] MEDS: Doxycycline 100 MG CAPSULE PO SCH ×2 (08:38→20:47)
[2019-01-18] MEDS: Cholecalciferol (D-3) 1,000 UNIT (25MCG) TABLET PO SCH (08:38)
[2019-01-18] MEDS: Ascorbic Acid 500 MG TABLET PO SCH ×2 (08:38→20:47)
[2019-01-18] MEDS: Metoprolol XL (24 HR) Succ 25 MG TAB.ER.24H PO SCH (08:38)
[2019-01-18] MEDS: Vitamin E 200 UNIT (90MG) CAPSULE PO SCH (08:38)
--- NOTE | 2019-01-18 10:51 | Internal Med Progress Note ---
Date of Encounter: 01/18/19 Time of Encounter: 10:49 - Assessment and plan (1) Atherosclerosis of left lower extremity with gangrene Current Visit: No Status: Chronic Assessment and plan: We will continue supportive care. Qualifiers: Peripheral atherosclerosis artery type: [place] artery Qualified Code(s): I70.262 - Atherosclerosis of [place] arteries of extremities with gangrene, left leg (2) CAD (coronary artery disease) Current Visit: Yes Status: Acute Assessment and plan: Currently, clinically stable but of long-term concern. Qualifiers: Coronary Disease-Associated Artery/Lesion type: [place] artery [place] vs. transplanted heart: [place] heart Associated angina: without angina Qualified Code(s): I25.10 - Atherosclerotic heart disease of [place] coronary artery without angina pectoris (3) CVA (cerebral vascular accident) Current Visit: No Status: Acute Assessment and plan: No current signs or symptoms. Patient does seem to have right eye weakness but this is habitual. Qualifiers: CVA mechanism: occlusion Precerebral and cerebral artery: middle cerebral artery Laterality of affected vessel: unspecified Qualified Code(s): I63.519 - Cerebral infarction due to unspecified occlusion or stenosis of unspecified middle cerebral artery (4) CKD (chronic kidney disease) Current Visit: Yes Status: Chronic Assessment and plan: Clinically stable, will follow. Qualifiers: Chronic kidney disease stage: stage 3 (moderate) Qualified Code(s): N18.3 - Chronic kidney disease, stage 3 (moderate) (5) Atrial fibrillation Current Visit: Yes Status: Chronic Assessment and plan: Rate controlled on current regimen. Qualifiers: Atrial fibrillation type: paroxysmal Qualified Code(s): I48.0 - Paroxysmal atrial fibrillation (6) Diabetes Current Visit: No Status: Chronic Assessment and plan: Stable on current regimen. We will continue with sliding scale. Qualifiers: Diabetes mellitus type: type 2 Diabetes mellitus local company intermodal truck driver insulin use: without local company intermodal truck driver use Diabetes mellitus complication status: with kidney complications Diabetes mellitus complication detail: with chronic kidney disease Chronic kidney disease stage: stage 3 (moderate) Qualified Code(s): E11.22 - Type 2 diabetes mellitus with diabetic chronic kidney disease; N18.3 - Chronic kidney disease, stage 3 (moderate) (7) CHF (congestive heart failure) Current Visit: Yes Status: Chronic Assessment and plan: Currently without signs or symptoms. Qualifiers: Heart failure type: systolic Heart failure chronicity: chronic Qualified Code(s): I50.22 - Chronic systolic (congestive) heart failure (8) COPD (chronic obstructive pulmonary disease) Current Visit: No Status: Chronic Assessment and plan: On supplemental oxygen and clinically controlled. Qualifiers: COPD type: emphysema Emphysema type: unspecified Qualified Code(s): J43.9 - Emphysema, unspecified (9) Constipation Current Visit: No Status: Resolved Assessment and plan: This is resolved and is now actually worsening with laxatives. Will follow. Qualifiers: Constipation type: other constipation type Qualified Code(s): K59.09 - Other constipation - Subjective Interval history: Patient is without complaint. However, he admits to continued toe pain, about 4 out of 10. His bowels were moving too much because of laxatives. He denies abdominal pain, melena, or hematochezia. He denies other problems. Patient has no complaint of chest discomfort, dyspnea, orthopnea, palpitations, nausea or vomiting, constipation or diarrhea, other changes in bowel habits, difficulty with urination, rash or itching, or other new complaints, except as mentioned above. Review of systems is otherwise negative. I discussed management of patient's care with nursing staff. - Constitutional Vitals: Temp Pulse Resp BP Pulse Ox 97.6 F 74 16 134/79 97 01/18/19 08:00 01/18/19 08:00 01/18/19 08:00 01/18/19 08:00 01/18/19 08:00 Exam: Examination: (Except as mentioned above): General: In no apparent distress. Alert and oriented 3. Nondiaphoretic. Patient is on oxygen by nasal cannula. Head: Atraumatic and normocephalic. Respiratory: No use of accessory muscles. Lungs are clear throughout. Normal airflow. Cardiovascular: Irregularly irregular consistent with atrial fibrillation, rate controlled, without murmur appreciated. Abdomen: Bowel sounds are normal. No hepatosplenomegaly mass or tenderness appr eciated. Extremities: No cyanosis clubbing or edema. Skin: Warm and non-diaphoretic with no new lesions noted. Left foot is still wrapped. Internal Medicine: Result - Labs CBC & Chem 7: 01/17/19 11:56 01/17/19 11:56 Labs: Short CBC 01/17/19 Range/Units 11:56 WBC 6.7 (4.3-11.1) K/mcL Hgb 9.5 L D (12.9-16.9) g/dL Hct 31.7 L (37.5-50.1) % Plt Count 170 D (140-400) K/mcL Neutrophils # 5.5 (1.6-8.9) K/mcL BMP 01/17/19 11:56 Sodium 135 L Potassium 4.1 Chloride 97 L Carbon Dioxide 31 H BUN 46 H Creatinine 1.38 H Glucose 94 Calcium 8.8 Liver Function 01/17/19 Range/Units 11:56 Total Bilirubin 0.7 (0.3-1.0) mg/dL AST 19 (13-39) Units/L ALT 13 (7-52) Units/L Alkaline Phosphatase 100 (34-104) Units/L Albumin 3.6 (3.5-5.7) g/dL Consult Discharge Plan - Plan Referrals: Mukesh Garcia MD [Primary Care Provider] -
[2019-01-19] MEDS: *HR* Enoxaparin 30 MG/0.3 ML SYRINGE SQ SCH (04:47)
[2019-01-19] MEDS: Vitamin E 200 UNIT (90MG) CAPSULE PO SCH (10:04)
[2019-01-19] MEDS: Aspirin Enteric Coated 81 MG Tablet PO SCH (10:04)
[2019-01-19] MEDS: Furosemide 40 MG TABLET PO SCH (10:04)
[2019-01-19] MEDS: Cholecalciferol (D-3) 1,000 UNIT (25MCG) TABLET PO SCH (10:05)
[2019-01-19] MEDS: Loratadine 10 MG TABLET PO SCH (10:05)
[2019-01-19] MEDS: Ascorbic Acid 500 MG TABLET PO SCH ×2 (10:05→20:24)
[2019-01-19] MEDS: Doxycycline 100 MG CAPSULE PO SCH ×2 (10:05→20:24)
[2019-01-19] MEDS: Metoprolol XL (24 HR) Succ 25 MG TAB.ER.24H PO SCH (10:05)
--- NOTE | 2019-01-19 15:51 | Internal Med Progress Note ---
Date of Encounter: 01/19/19 Time of Encounter: 15:48 - Assessment and plan (1) Atherosclerosis of left lower extremity with gangrene Current Visit: No Status: Chronic Assessment and plan: We will continue supportive care. Qualifiers: Peripheral atherosclerosis artery type: [place] artery Qualified Code(s): I70.262 - Atherosclerosis of [place] arteries of extremities with gangrene, left leg (2) CAD (coronary artery disease) Current Visit: Yes Status: Acute Assessment and plan: No current symptoms or signs. Qualifiers: Coronary Disease-Associated Artery/Lesion type: [place] artery [place] vs. transplanted heart: [place] heart Associated angina: without angina Qualified Code(s): I25.10 - Atherosclerotic heart disease of [place] coronary artery without angina pectoris (3) CVA (cerebral vascular accident) Current Visit: No Status: Acute Assessment and plan: Remote without new deficits. Qualifiers: CVA mechanism: occlusion Precerebral and cerebral artery: middle cerebral artery Laterality of affected vessel: unspecified Qualified Code(s): I63.519 - Cerebral infarction due to unspecified occlusion or stenosis of unspecified middle cerebral artery (4) CKD (chronic kidney disease) Current Visit: Yes Status: Chronic Assessment and plan: Stable but will recheck labs tomorrow. Qualifiers: Chronic kidney disease stage: stage 3 (moderate) Qualified Code(s): N18.3 - Chronic kidney disease, stage 3 (moderate) (5) Atrial fibrillation Current Visit: Yes Status: Chronic Assessment and plan: Stable and rate is controlled. Qualifiers: Atrial fibrillation type: paroxysmal Qualified Code(s): I48.0 - Paroxysmal atrial fibrillation (6) Diabetes Current Visit: No Status: Chronic Assessment and plan: We will continue current regimen and sliding-scale. Adequate control for patient's situation. Qualifiers: Diabetes mellitus type: type 2 Diabetes mellitus intermediate teacher insulin use: without fci use Diabetes mellitus complication status: with kidney complications Diabetes mellitus complication detail: with chronic kidney disease Chronic kidney disease stage: stage 3 (moderate) Qualified Code(s): E11.22 - Type 2 diabetes mellitus with diabetic chronic kidney disease; N18.3 - Chronic kidney disease, stage 3 (moderate) (7) CHF (congestive heart failure) Current Visit: Yes Status: Chronic Assessment and plan: No current rales or other findings to suggest uncontrolled heart failure. Qualifiers: Heart failure type: systolic Heart failure chronicity: chronic Qualified Code(s): I50.22 - Chronic systolic (congestive) heart failure (8) COPD (chronic obstructive pulmonary disease) Current Visit: No Status: Chronic Assessment and plan: I am impressed with his airflow, today. No rales or rhonchi are heard. Qualifiers: COPD type: emphysema Emphysema type: unspecified Qualified Code(s): J43.9 - Emphysema, unspecified - Subjective Interval history: Patient is still having about 4 out of 10 pain at his left toe. He denies other problems. He admits to frequent bowel movements but only once today. He denies bloating, abdominal pain, hematochezia or melena. Patient has no complaint of chest discomfort, dyspnea, orthopnea, palpitations, nausea or vomiting, constipation or diarrhea, other changes in bowel habits, difficulty with urination, rash or itching, or other new complaints, except as mentioned above. Review of systems is otherwise negative. I discussed management of patient's care with nursing staff. - Constitutional Vitals: Temp Pulse Resp BP Pulse Ox 97.6 F 71 16 137/79 95 01/19/19 07:22 01/19/19 07:22 01/19/19 07:22 01/19/19 07:22 01/19/19 07:22 Exam: Examination: (Except as mentioned above): General: In no apparent distress. Alert and oriented 3. Nondiaphoretic. On oxygen by nasal cannula. Head: Atraumatic and normocephalic. Respiratory: No use of accessory muscles. Lungs are clear throughout. Nearly normal airflow. Cardiovascular: Irregularly irregular consistent with atrial fibrillation, rate controlled, without murmur appreciated. Abdomen: Bowel sounds are normal. No hepatosplenomegaly mass or tenderness appreciated. Extremities: No cyanosis clubbing or edema. No cord or calf tenderness. Skin: Warm and non-diaphoretic with no new lesions noted. His left heel wound looks good with minimal discharge and would seem heel lift not for discharge. Left third toe is necrotic and suspected auto amputation is not far off. Left surgical wound at "chin" pretibial region is somewhat erythematous with ecchymosis surrounding. Sutures seem intact and are ordered to come out today. I asked nursing to remove these and apply Steri-Strips. It would not surprise me if the wound dehisced his with his known poor circulation. Internal Medicine: Result - Labs CBC & Chem 7: 01/17/19 11:56 01/17/19 11:56 Consult Discharge Plan - Plan Referrals: Mukesh Garcia MD [Primary Care Provider] -
[2019-01-19] MEDS: Acetaminophen 325 MG TABLET PO PRN (17:29)
[2019-01-20] MEDS: *HR* Enoxaparin 30 MG/0.3 ML SYRINGE SQ SCH (05:18)
[2019-01-20] MEDS: Acetaminophen 325 MG TABLET PO PRN ×2 (05:18→22:17)
[2019-01-20 06:48] LABS: Basophils % 0.5 %; Eosinophils # 0.2 K/mcL (0.0-0.6); Eosinophils % 3.5 %; Hematocrit 27.8 % (37.5-50.1); Hemoglobin 8.4 g/dL (12.9-16.9); Immature Granulocytes % 0.5 % (0-4); Lymphocytes # 0.5 K/mcL (0.6-4.6); Lymphocytes % 8.8 %; Mean Corpuscular HGB Conc 30.2 g/dL (31.6-35.5); Mean Corpuscular Hemoglobin 29.6 pg (28.0-33.3); Mean Corpuscular Volume 97.9 fL (83.0-100.0); Mean Platelet Volume 10.7 fL (9.4-12.4); Monocytes # 0.4 K/mcL (0.0-1.3); Monocytes % 7.6 %; Neutrophils # 4.5 K/mcL (1.6-8.9); Platelet Count 155 K/mcL (140-400); Red Blood Count 2.84 M/mcL (4.19-5.50); Red Cell Distribution Width 18.5 % (11.5-14.5); Segmented Neutrophils % 79.1 %; White Blood Count 5.7 K/mcL (4.3-11.1)
[2019-01-20 07:06] LABS: Alanine Aminotransferase 11 Units/L (7-52); Albumin 3.1 g/dL (3.5-5.7); Alkaline Phosphatase 84 Units/L (34-104); Aspartate Amino Transferase 17 Units/L (13-39); BUN/Creatinine Ratio 36 (6-26); Bilirubin,Total 0.6 mg/dL (0.3-1.0); Blood Urea Nitrogen 49 mg/dL (8-23); Calcium 8.4 mg/dL (8.6-10.3); Carbon Dioxide 34 mEq/L (23-29); Chloride 97 mEq/L (98-107); Globulin 3.1 g/dL (2.4-3.5); Glucose 100 mg/dL (70-105); Osmolality,Calculated 297 (280-300); Potassium 4.7 mEq/L (3.5-5.1); Sodium 137 mEq/L (136-145); Total Protein 6.2 g/dL (6.4-8.9); eGFR For African Americans > 60 (> 60); eGFR For Non-African Americans 50 (> 60)
[2019-01-20] MEDS: Loratadine 10 MG TABLET PO SCH (08:18)
[2019-01-20] MEDS: Furosemide 40 MG TABLET PO SCH (08:18)
[2019-01-20] MEDS: Aspirin Enteric Coated 81 MG Tablet PO SCH (08:18)
[2019-01-20] MEDS: Cholecalciferol (D-3) 1,000 UNIT (25MCG) TABLET PO SCH (08:18)
[2019-01-20] MEDS: Ascorbic Acid 500 MG TABLET PO SCH ×2 (08:18→22:17)
[2019-01-20] MEDS: Doxycycline 100 MG CAPSULE PO SCH ×2 (08:18→22:17)
[2019-01-20] MEDS: Metoprolol XL (24 HR) Succ 25 MG TAB.ER.24H PO SCH (08:18)
[2019-01-20] MEDS: Vitamin E 200 UNIT (90MG) CAPSULE PO SCH (10:18)
--- NOTE | 2019-01-20 10:43 | Internal Med Progress Note ---
Date of Encounter: 01/20/19 Time of Encounter: 10:41 - Assessment and plan (1) Gangrene Current Visit: Yes Status: Chronic Assessment and plan: Left toe. Follow up with infectious disease as scheduled. (2) Urinary obstruction Current Visit: Yes Status: Chronic Assessment and plan: Continue to self cath. Patient states he is in this for many years due to BPH. (3) Atrial fibrillation Current Visit: Yes Status: Chronic Assessment and plan: Rate and rhythm stable. Continue current medication. Continue Lovenox. Qualifiers: Atrial fibrillation type: paroxysmal Qualified Code(s): I48.0 - Paroxysmal atrial fibrillation (4) CAD (coronary artery disease) Current Visit: Yes Status: Acute Assessment and plan: Stable. Denies chest pain. Continue current medication. Qualifiers: Coronary Disease-Associated Artery/Lesion type: [place] artery [place] vs. transplanted heart: [place] heart Associated angina: without angina Qualified Code(s): I25.10 - Atherosclerotic heart disease of [place] coronary artery without angina pectoris (5) CKD (chronic kidney disease) Current Visit: Yes Status: Chronic Assessment and plan: Stable. Monitor labs. Avoid nephrotoxic agents. Qualifiers: Chronic kidney disease stage: stage 3 (moderate) Qualified Code(s): N18.3 - Chronic kidney disease, stage 3 (moderate) (6) CHF (congestive heart failure) Current Visit: Yes Status: Chronic Assessment and plan: Stable. Continue current medication. Monitor for decompensation. Qualifiers: Heart failure type: systolic Heart failure chronicity: chronic Qualified Code(s): I50.22 - Chronic systolic (congestive) heart failure (7) Anemia Current Visit: Yes Status: Chronic Assessment and plan: Hemoglobin 8.4. Will repeat tomorrow. Qualifiers: Anemia type: unspecified type Qualified Code(s): D64.9 - Anemia, unspecified - Time Spent With Patient less than 15 minutes - Subjective Interval history: Patient lying in bed. Became shortness of breath and oxygen saturation dropped to 84% with therapy. Was on oxygen at 2 L per nasal cannula. Oxygen recovered to 94% with increasing to 3 L. Patient denies chest pain, fever, chills, nausea vomiting or diarrhea. - Constitutional Vitals: Temp Pulse Resp BP Pulse Ox 97.7 F 73 16 140/85 96 01/20/19 06:40 01/20/19 06:40 01/20/19 06:40 07/22/19 06:40 01/20/19 06:40 General appearance: Present: A&O X 3, pleasant, no acute distress, answers questions appropriately - Head Head exam: Present: atraumatic, normocephalic - Eye Eye exam: Present: PERRL, conjuntiva pink, sclera anicteric Pupils: Present: PERRL - Neck Neck exam general surgery: Present: supple, trachea midline. Absent: lymphadenopathy - Respiratory Respiratory exam: Present: CTAB. Absent: accessory muscle use, rales, rhonchi, wheezes Additional comments: Diminished bilateral basis - Cardiovascular Cardiovascular exam: Present: irregular rhythm, +S1, +S2. Absent: diastolic murmur, gallop, rubs, systolic murmur - GI/Abdominal GI/Abdominal exam: Present: normal bowel sounds, soft, no peritoneal signs. Absent: distended, tenderness - Extremities Exam Extremities exam: Present: warm, radial pulses palpable and symmetrical. Absent: calf tenderness, cyanotic, pedal edema - Neurological Exam Neurological exam: Present: CN II-XII intact, oriented X3, no focal deficits. Absent: pronater drift, facial droop, speech deficit - Skin Skin exam: Present: dry, intact Additional comments: Left foot and left schmitt dressing dry and intact. Internal Medicine: Result - Labs CBC & Chem 7: 01/20/19 06:34 01/20/19 06:34 Labs: Short CBC 01/20/19 Range/Units 06:34 WBC 5.7 (4.3-11.1) K/mcL Hgb 8.4 L (12.9-16.9) g/dL Hct 27.8 L (37.5-50.1) % Plt Count 155 (140-400) K/mcL Neutrophils # 4.5 (1.6-8.9) K/mcL BMP 01/20/19 06:34 Sodium 137 Potassium 4.7 Chloride 97 L Carbon Dioxide 34 H BUN 49 H Creatinine 1.35 H Glucose 100 Calcium 8.4 L Liver Function 01/20/19 Range/Units 06:34 Total Bilirubin 0.6 (0.3-1.0) mg/dL AST 17 (13-39) Units/L ALT 11 (7-52) Units/L Alkaline Phosphatase 84 (34-104) Units/L Albumin 3.1 L (3.5-5.7) g/dL Consult Discharge Plan - Plan Referrals: Mukesh Garcia MD [Primary Care Provider] -
[2019-01-20] MEDS ORDERED: Furosemide 40 MG/4 ML VIAL IVP ONE ×2 (10:57→17:30)
[2019-01-20] MEDS ORDERED: 0.9 % Sodium Chloride 250 ML ONE ×2 (14:06→17:31)
[2019-01-21] MEDS: *HR* Enoxaparin 30 MG/0.3 ML SYRINGE SQ SCH (04:59)
[2019-01-21 06:01] LABS: Hematocrit 35.4 % (37.5-50.1); Mean Corpuscular HGB Conc 31.1 g/dL (31.6-35.5); Mean Corpuscular Hemoglobin 29.5 pg (28.0-33.3); Mean Corpuscular Volume 94.9 fL (83.0-100.0); Platelet Count 142 K/mcL (140-400); Red Blood Count 3.73 M/mcL (4.19-5.50); Red Cell Distribution Width 18.2 % (11.5-14.5)
[2019-01-21] MEDS: Vitamin E 200 UNIT (90MG) CAPSULE PO SCH (09:09)
[2019-01-21] MEDS: Doxycycline 100 MG CAPSULE PO SCH ×2 (09:09→21:16)
[2019-01-21] MEDS: Cholecalciferol (D-3) 1,000 UNIT (25MCG) TABLET PO SCH (09:10)
[2019-01-21] MEDS: Ascorbic Acid 500 MG TABLET PO SCH ×2 (09:10→21:16)
[2019-01-21] MEDS: Loratadine 10 MG TABLET PO SCH (09:10)
[2019-01-21] MEDS: Metoprolol XL (24 HR) Succ 25 MG TAB.ER.24H PO SCH (09:10)
[2019-01-21] MEDS: Furosemide 40 MG TABLET PO SCH (09:10)
[2019-01-21] MEDS: Aspirin Enteric Coated 81 MG Tablet PO SCH (09:10)
--- NOTE | 2019-01-21 09:14 | Internal Med Progress Note ---
Date of Encounter: 01/21/19 Time of Encounter: 09:12 - Assessment and plan (1) Gangrene Current Visit: Yes Status: Chronic Assessment and plan: Left toe. Follow up with infectious disease as scheduled. (2) Urinary obstruction Current Visit: Yes Status: Chronic Assessment and plan: Continue to self cath. Patient states he is in this for many years due to BPH. (3) Atrial fibrillation Current Visit: Yes Status: Chronic Assessment and plan: Rate and rhythm stable. Continue current medication. Continue Lovenox. Qualifiers: Atrial fibrillation type: paroxysmal Qualified Code(s): I48.0 - Paroxysmal atrial fibrillation (4) CAD (coronary artery disease) Current Visit: Yes Status: Acute Assessment and plan: Stable. Denies chest pain. Continue current medication. Qualifiers: Coronary Disease-Associated Artery/Lesion type: [place] artery [place] vs. transplanted heart: [place] heart Associated angina: without angina Qualified Code(s): I25.10 - Atherosclerotic heart disease of [place] coronary artery without angina pectoris (5) CKD (chronic kidney disease) Current Visit: Yes Status: Chronic Assessment and plan: Stable. Monitor labs. Avoid nephrotoxic agents. Qualifiers: Chronic kidney disease stage: stage 3 (moderate) Qualified Code(s): N18.3 - Chronic kidney disease, stage 3 (moderate) (6) CHF (congestive heart failure) Current Visit: Yes Status: Chronic Assessment and plan: Stable. Continue current medication. Monitor for decompensation. Qualifiers: Heart failure type: systolic Heart failure chronicity: chronic Qualified Code(s): I50.22 - Chronic systolic (congestive) heart failure (7) Anemia Current Visit: Yes Status: Chronic Assessment and plan: Hemoglobin 8.4, received 2 units blood yesterday. hgb now 11.0. Qualifiers: Anemia type: unspecified type Qualified Code(s): D64.9 - Anemia, unspecified - Time Spent With Patient less than 15 minutes - Subjective Interval history: Patient lying in bed. Patient denies chest pain, fever, chills, nausea vomiting or diarrhea. Denies shortness of breath. Maintaining O2 sats at 93% with 3 L per nasal cannula. Received 2 units of blood yesterday for hemoglobin 8.4. Hemoglobin is now 11.0. To resume therapy today. - Constitutional Vitals: Temp Pulse Resp BP Pulse Ox 97.6 F 84 18 144/85 93 01/21/19 06:45 01/21/19 06:45 01/21/19 06:45 01/21/19 06:45 01/21/19 06:45 General appearance: Present: A&O X 3, pleasant, no acute distress, answers questions appropriately - Head Head exam: Present: atraumatic, normocephalic - Eye Eye exam: Present: PERRL, conjuntiva pink, sclera anicteric Pupils: Present: PERRL - Neck Neck exam general surgery: Present: supple, trachea midline. Absent: lymphadenopathy - Respiratory Respiratory exam: Present: CTAB. Absent: accessory muscle use, rales, rhonchi, wheezes - Cardiovascular Cardiovascular exam: Present: RRR, +S1, +S2. Absent: diastolic murmur, gallop, rubs, systolic murmur - GI/Abdominal GI/Abdominal exam: Present: normal bowel sounds, soft, no peritoneal signs. Absent: distended, tenderness - Extremities Exam Extremities exam: Present: warm, radial pulses palpable and symmetrical. Absent: calf tenderness, cyanotic, pedal edema Additional comments: Left foot and left schmitt dressings dry and intact. - Neurological Exam Neurological exam: Present: CN II-XII intact, oriented X3, no focal deficits. Absent: pronater drift, facial droop, speech deficit - Skin Skin exam: Present: dry, intact Internal Medicine: Result - Labs CBC & Chem 7: 01/21/19 05:50 01/20/19 06:34 Labs: Short CBC 01/21/19 Range/Units 05:50 WBC 6.0 (4.3-11.1) K/mcL Hgb 11.0 L D (12.9-16.9) g/dL Hct 35.4 L (37.5-50.1) % Plt Count 142 (140-400) K/mcL Consult Discharge Plan - Plan Referrals: Mukesh Garcia MD [Primary Care Provider] -
[2019-01-21] MEDS: Acetaminophen 325 MG TABLET PO PRN (21:16)
[2019-01-22] MEDS: *HR* Enoxaparin 30 MG/0.3 ML SYRINGE SQ SCH (05:11)
[2019-01-22] MEDS: Acetaminophen 325 MG TABLET PO PRN (05:11)
[2019-01-22] MEDS: Cholecalciferol (D-3) 1,000 UNIT (25MCG) TABLET PO SCH (09:02)
[2019-01-22] MEDS: Doxycycline 100 MG CAPSULE PO SCH ×2 (09:02→19:42)
[2019-01-22] MEDS: Metoprolol XL (24 HR) Succ 25 MG TAB.ER.24H PO SCH (09:02)
[2019-01-22] MEDS: Furosemide 40 MG TABLET PO SCH (09:02)
[2019-01-22] MEDS: Ascorbic Acid 500 MG TABLET PO SCH ×2 (09:02→19:42)
[2019-01-22] MEDS: Vitamin E 200 UNIT (90MG) CAPSULE PO SCH (09:02)
[2019-01-22] MEDS: Aspirin Enteric Coated 81 MG Tablet PO SCH (09:02)
[2019-01-22] MEDS: Loratadine 10 MG TABLET PO SCH (09:02)
--- NOTE | 2019-01-22 10:01 | Internal Med Progress Note ---
Date of Encounter: 01/22/19 Time of Encounter: 09:59 - Assessment and plan (1) Gangrene of toe of left foot Current Visit: Yes Status: Acute Assessment and plan: No acute issues. Patient continues with complaints of pain to his right 2nd toe, which he states is at 45/10 level of pain. No changes in exam of right foot. Dsg dry and intact. Patient continues to ambulate through physical therapy and tolerating well. We will continue with current plan of care (2) CHF exacerbation Current Visit: Yes Status: Acute Assessment and plan: No acute issues. Patient's lungs remain fairly clear with fine basilar rales, more increased on the right base. Respiratory effort appears relaxed. Denies any dyspnea or palpitations. We will continue with current medications and therapy Qualifiers: Heart failure type: systolic Qualified Code(s): I50.23 - Acute on chronic systolic (congestive) heart failure (3) COPD exacerbation Current Visit: Yes Status: Acute Assessment and plan: No acute issues. Lungs are fairly clear with fine posterior rales with increased right base. No productive cough. No complaints of dyspnea while at rest. We will continue with current bronchodilators and medications. (4) Chronic kidney disease, stage 3 Current Visit: Yes Status: Chronic Assessment and plan: No acute issues. We will continue to monitor patient's renal status serial labs. With current medications. (5) Atrial fibrillation Current Visit: Yes Status: Chronic Assessment and plan: Rate controlled with vent rate <100. No c/o palpitations or CP. Qualifiers: Atrial fibrillation type: paroxysmal Qualified Code(s): I48.0 - Paroxysmal atrial fibrillation (6) CAD (coronary artery disease) Current Visit: Yes Status: Acute Assessment and plan: No acute issues. Patient denies any chest discomforts or palpitations. Heart rate continues with controlled rate less than 100. We will continue with current therapy and medications Qualifiers: Coronary Disease-Associated Artery/Lesion type: [place] artery [place] vs. transplanted heart: [place] heart Associated angina: without angina Qualified Code(s): I25.10 - Atherosclerotic heart disease of [place] coronary artery without angina pectoris - Time Spent With Patient less than 15 minutes - Subjective Interval history: Patient appears relaxed but currently states that he continues to have a throbbing type pain to his right foot and second toe. Patient with history of severe peripheral vascular disease and currently has his right 2nd toe appearing necrotic. Patient states that his pain is at 45/10 level of pain. Denies any current issues. States that his pulmonary status currently is stable and denies any dyspnea or productive cough. Patient rec'd 2 units of PRBC last evening. - Constitutional Vitals: Temp Pulse Resp BP Pulse Ox 97.9 F 70 14 149/81 97 01/22/19 07:58 01/22/19 07:58 01/22/19 07:58 01/22/19 07:58 01/22/19 07:58 General appearance: Present: A&O X 3, pleasant, no acute distress, answers questions appropriately - Head Head exam: Present: atraumatic, normocephalic - Eye Eye exam: Present: PERRL, conjuntiva pink, sclera anicteric Pupils: Present: PERRL - Neck Neck exam general surgery: Present: supple, trachea midline. Absent: lymphadenopathy - Respiratory Respiratory exam: Present: CTAB, rales. Absent: accessory muscle use, rhonchi, wheezes Additional comments: Noted fine basilar rales, increased on the right base. RR eupneic. Continues on supplemental oxygen - Cardiovascular Cardiovascular exam: Present: irregular rhythm, RRR, +S1, +S2, systolic murmur. Absent: diastolic murmur, gallop, rubs - GI/Abdominal GI/Abdominal exam: Present: normal bowel sounds, soft, no peritoneal signs. Abs ent: distended, tenderness - Extremities Exam Extremities exam: Present: warm, radial pulses palpable and symmetrical. Absent: calf tenderness, cyanotic, pedal edema Additional comments: Left lower leg and foot with kerlex dsg that is C,D& I. - Neurological Exam Neurological exam: Present: CN II-XII intact, oriented X3, no focal deficits. Absent: pronater drift, facial droop, speech deficit - Skin Skin exam: Present: dry, intact Internal Medicine: Result - Labs CBC & Chem 7: 01/21/19 05:50 01/20/19 06:34 Consult Discharge Plan - Plan Referrals: Mukesh Garcia MD [Primary Care Provider] -
[2019-01-23] MEDS: *HR* Enoxaparin 30 MG/0.3 ML SYRINGE SQ SCH (06:32)
[2019-01-23] MEDS: Doxycycline 100 MG CAPSULE PO SCH ×2 (09:47→20:58)
[2019-01-23] MEDS: Cholecalciferol (D-3) 1,000 UNIT (25MCG) TABLET PO SCH (09:47)
[2019-01-23] MEDS: Vitamin E 200 UNIT (90MG) CAPSULE PO SCH (09:47)
[2019-01-23] MEDS: Furosemide 40 MG TABLET PO SCH (09:48)
[2019-01-23] MEDS: Ascorbic Acid 500 MG TABLET PO SCH ×2 (09:48→20:56)
[2019-01-23] MEDS: Loratadine 10 MG TABLET PO SCH (09:48)
[2019-01-23] MEDS: Aspirin Enteric Coated 81 MG Tablet PO SCH (09:48)
[2019-01-23] MEDS: Metoprolol XL (24 HR) Succ 25 MG TAB.ER.24H PO SCH (09:48)
--- NOTE | 2019-01-23 10:42 | Internal Med Progress Note ---
Date of Encounter: 01/23/19 Time of Encounter: 10:39 - Assessment and plan (1) Gangrene of toe of left foot Current Visit: Yes Status: Acute Assessment and plan: No acute issues. Patient continues with complaints of pain to his right 2nd toe, which he states is at 45/10 level of pain. No changes in exam of right foot. Dsg dry and intact. Patient continues to ambulate through physical therapy and tolerating well. We will continue with current plan of care (2) CHF exacerbation Current Visit: Yes Status: Acute Assessment and plan: No acute issues. Patient's lungs remain clear today with diminished breath sounds to basilar moreno Respiratory effort appears relaxed. Patient observed with slight dyspnea after standing for several minutes while dressing. No apparent distress. We will continue with current medications Qualifiers: Heart failure type: systolic Qualified Code(s): I50.23 - Acute on chronic systolic (congestive) heart failure (3) COPD exacerbation Current Visit: Yes Status: Acute Assessment and plan: No acute issues. Today patient's lungs are clear throughout with diminished breath sounds noted to lower moreno. Patient became very winded during standing while dressing, showing poor endurance. No apparent distress. (4) Chronic kidney disease, stage 3 Current Visit: Yes Status: Chronic Assessment and plan: No acute issues. We will continue to monitor patient's renal status serial labs. With current medications. (5) Atrial fibrillation Current Visit: Yes Status: Chronic Assessment and plan: Rate controlled with vent rate <100. No c/o palpitations or CP. Qualifiers: Atrial fibrillation type: paroxysmal Qualified Code(s): I48.0 - Paroxysmal atrial fibrillation (6) CAD (coronary artery disease) Current Visit: Yes Status: Acute Assessment and plan: No acute issues. Patient denies any chest discomforts or palpitations. Heart rate continues with controlled rate less than 100. We will continue with current therapy and medications Qualifiers: Coronary Disease-Associated Artery/Lesion type: [place] artery [place] vs. transplanted heart: [place] heart Associated angina: without angina Qualified Code(s): I25.10 - Atherosclerotic heart disease of [place] coronary artery without angina pectoris - Time Spent With Patient less than 15 minutes - Subjective Interval history: Patient appears relaxed but currently states that he continues to have a throbbing type pain to his right foot and second toe. Patient with history of severe peripheral vascular disease and currently has his right 2nd toe appearing necrotic. Patient states that his pain is at 45/10 level of pain. Denies any current issues. Patient observed standing while dressing this morning and noted to become slightly winded with respiratory rate at 24/m. No associated muscle use. - Constitutional Vitals: Temp Pulse Resp BP Pulse Ox 97.6 F 71 15 145/89 97 01/23/19 08:31 01/23/19 08:31 01/23/19 08:31 01/23/19 08:31 01/23/19 08:31 General appearance: Present: A&O X 3, pleasant, no acute distress, answers questions appropriately - Head Head exam: Present: atraumatic, normocephalic - Eye Eye exam: Present: PERRL, conjuntiva pink, sclera anicteric Pupils: Present: PERRL - Neck Neck exam general surgery: Present: supple, trachea midline. Absent: lymphadenopathy - Respiratory Respiratory exam: Present: decreased breath sounds, CTAB. Absent: accessory muscle use, rales, rhonchi, wheezes Additional comments: Patient noted to become slightly winded after standing for several minutes while dressing. Lungs remain clear with diminished basilar moreno. Productive cough with thick white sputum received. - Cardiovascular Cardiovascular exam: Present: RRR, +S1, +S2. Absent: diastolic murmur, gallop, rubs, systolic murmur - GI/Abdominal GI/Abdominal exam: Present: normal bowel sounds, soft, no peritoneal signs. Absent: distended, tenderness - Extremities Exam Extremities exam: Present: warm, radial pulses palpable and symmetrical. Absent: calf tenderness, cyanotic, pedal edema Additional comments: Patient with dressing to his left foot, which remains dry and intact. Slight tenderness to second toe, which has remained necrotic in appearance - Neurological Exam Neurological exam: Present: CN II-XII intact, oriented X3, no focal deficits. A bsent: pronater drift, facial droop, speech deficit - Skin Skin exam: Present: dry, intact Internal Medicine: Result - Labs CBC & Chem 7: 01/21/19 05:50 01/20/19 06:34 Consult Discharge Plan - Plan Referrals: Mukesh Garcia MD [Primary Care Provider] -
[2019-01-23] MEDS: Acetaminophen 325 MG TABLET PO PRN (20:55)
[2019-01-24] MEDS: *HR* Enoxaparin 30 MG/0.3 ML SYRINGE SQ SCH (06:28)
[2019-01-24] MEDS: Vitamin E 200 UNIT (90MG) CAPSULE PO SCH (09:19)
[2019-01-24] MEDS: Cholecalciferol (D-3) 1,000 UNIT (25MCG) TABLET PO SCH (09:19)
[2019-01-24] MEDS: Doxycycline 100 MG CAPSULE PO SCH ×2 (09:19→22:01)
[2019-01-24] MEDS: Furosemide 40 MG TABLET PO SCH (09:19)
[2019-01-24] MEDS: Ascorbic Acid 500 MG TABLET PO SCH ×2 (09:20→22:01)
[2019-01-24] MEDS: Metoprolol XL (24 HR) Succ 25 MG TAB.ER.24H PO SCH (09:20)
[2019-01-24] MEDS: Loratadine 10 MG TABLET PO SCH (09:20)
[2019-01-24] MEDS: Aspirin Enteric Coated 81 MG Tablet PO SCH (09:20)
--- NOTE | 2019-01-24 10:41 | Internal Med Progress Note ---
Date of Encounter: 01/24/19 Time of Encounter: 10:38 - Assessment and plan (1) Gangrene Current Visit: Yes Status: Chronic Assessment and plan: Left toe. Follow up with infectious disease as scheduled. (2) Urinary obstruction Current Visit: Yes Status: Chronic Assessment and plan: Continue to self cath. Patient states he is in this for many years due to BPH. (3) Atrial fibrillation Current Visit: Yes Status: Chronic Assessment and plan: Rate and rhythm stable. Continue current medication. Continue Lovenox. Qualifiers: Atrial fibrillation type: paroxysmal Qualified Code(s): I48.0 - Paroxysmal atrial fibrillation (4) CAD (coronary artery disease) Current Visit: Yes Status: Acute Assessment and plan: Stable. Denies chest pain. Continue current medication. Qualifiers: Coronary Disease-Associated Artery/Lesion type: [place] artery [place] vs. transplanted heart: [place] heart Associated angina: without angina Qualified Code(s): I25.10 - Atherosclerotic heart disease of [place] coronary artery without angina pectoris (5) CKD (chronic kidney disease) Current Visit: Yes Status: Chronic Assessment and plan: Stable. Monitor labs. Avoid nephrotoxic agents. Qualifiers: Chronic kidney disease stage: stage 3 (moderate) Qualified Code(s): N18.3 - Chronic kidney disease, stage 3 (moderate) (6) CHF (congestive heart failure) Current Visit: Yes Status: Chronic Assessment and plan: Stable. Continue current medication. Monitor for decompensation. Qualifiers: Heart failure type: systolic Heart failure chronicity: chronic Qualified Code(s): I50.22 - Chronic systolic (congestive) heart failure (7) Anemia Current Visit: Yes Status: Chronic Assessment and plan: complains of increased fatigue, labs ordered. Qualifiers: Anemia type: unspecified type Qualified Code(s): D64.9 - Anemia, unspecified (8) Fatigue Current Visit: Yes Status: Acute Assessment and plan: c/o increased fatigue. will order CBC and CMP. follow for results. hx of anemia with blood transfusion in the past week. Qualifiers: Fatigue type: unspecified Qualified Code(s): R53.83 - Other fatigue - Time Spent With Patient less than 15 minutes - Subjective Interval history: Patient lying in bed. states he doesnt feel well and is very tired. Patient denies chest pain, fever, chills, nausea vomiting or diarrhea. Denies shortness of breath. Maintaining O2 sats at 93% with 3 L per nasal cannula. therapy on hold this am. discussed ordering labs. was able to eat breakfast this am. - Constitutional Vitals: Temp Pulse Resp BP Pulse Ox 97.6 F 76 15 153/86 95 01/24/19 07:36 01/24/19 07:36 01/24/19 07:36 01/24/19 07:36 01/24/19 07:36 General appearance: Present: cooperative, A&O X 3, pleasant, no acute distress, answers questions appropriately - Head Head exam: Present: atraumatic, normocephalic - Eye Eye exam: Present: PERRL, conjuntiva pink, sclera anicteric Pupils: Present: PERRL - Neck Neck exam general surgery: Present: supple, trachea midline. Absent: lymphadenopathy - Respiratory Respiratory exam: Present: CTAB. Absent: accessory muscle use, rales, rhonchi, wheezes - Cardiovascular Cardiovascular exam: Present: RRR, +S1, +S2. Absent: diastolic murmur, gallop, rubs, systolic murmur - GI/Abdominal GI/Abdominal exam: Present: normal bowel sounds, soft, no peritoneal signs. Absent: distended, tenderness - Extremities Exam Extremities exam: Present: warm, radial pulses palpable and symmetrical. Absent: calf tenderness, cyanotic, pedal edema Additional comments: left foot and left schmitt area, drsg dry and intact. - Neurological Exam Neurological exam: Present: CN II-XII intact, oriented X3, no focal deficits. Absent: pronater drift, facial droop, speech deficit - Skin Skin exam: Present: dry, intact Internal Medicine: Result - Labs CBC & Chem 7: 01/21/19 05:50 01/20/19 06:34 Consult Discharge Plan - Plan Referrals: Mukesh Garcia MD [Primary Care Provider] -
[2019-01-24 11:13] LABS: Basophils % 0.5 %; Eosinophils # 0.1 K/mcL (0.0-0.6); Eosinophils % 1.1 %; Hematocrit 35.2 % (37.5-50.1); Hemoglobin 10.6 g/dL (12.9-16.9); Immature Granulocytes % 0.2 % (0-4); Lymphocytes # 0.4 K/mcL (0.6-4.6); Lymphocytes % 6.6 %; Mean Corpuscular HGB Conc 30.1 g/dL (31.6-35.5); Mean Corpuscular Hemoglobin 29.6 pg (28.0-33.3); Mean Corpuscular Volume 98.3 fL (83.0-100.0); Mean Platelet Volume 10.6 fL (9.4-12.4); Monocytes # 0.4 K/mcL (0.0-1.3); Monocytes % 6.4 %; Neutrophils # 4.8 K/mcL (1.6-8.9); Platelet Count 139 K/mcL (140-400); Red Blood Count 3.58 M/mcL (4.19-5.50); Red Cell Distribution Width 18.6 % (11.5-14.5); Segmented Neutrophils % 85.2 %; White Blood Count 5.6 K/mcL (4.3-11.1)
[2019-01-24 11:34] LABS: Albumin 3.2 g/dL (3.5-5.7); Albumin/Globulin Ratio 0.9 (1.1-2.2); Bilirubin,Total 0.9 mg/dL (0.3-1.0); Calcium 8.8 mg/dL (8.6-10.3); Globulin 3.5 g/dL (2.4-3.5); Potassium 4.3 mEq/L (3.5-5.1); Total Protein 6.7 g/dL (6.4-8.9)
[2019-01-24] MEDS: Acetaminophen 325 MG TABLET PO PRN (22:00)
[2019-01-25] MEDS: *HR* Enoxaparin 30 MG/0.3 ML SYRINGE SQ SCH (05:06)
[2019-01-25] MEDS: Cholecalciferol (D-3) 1,000 UNIT (25MCG) TABLET PO SCH (09:05)
[2019-01-25] MEDS: Doxycycline 100 MG CAPSULE PO SCH ×2 (09:05→20:36)
[2019-01-25] MEDS: Furosemide 40 MG TABLET PO SCH (09:05)
[2019-01-25] MEDS: Loratadine 10 MG TABLET PO SCH (09:05)
[2019-01-25] MEDS: Ascorbic Acid 500 MG TABLET PO SCH ×2 (09:05→20:36)
[2019-01-25] MEDS: Metoprolol XL (24 HR) Succ 25 MG TAB.ER.24H PO SCH (09:05)
[2019-01-25] MEDS: Vitamin E 200 UNIT (90MG) CAPSULE PO SCH (09:05)
[2019-01-25] MEDS: Aspirin Enteric Coated 81 MG Tablet PO SCH (09:06)
--- NOTE | 2019-01-25 09:14 | Internal Med Progress Note ---
Date of Encounter: 01/25/19 Time of Encounter: 09:12 - Assessment and plan (1) Acute and chronic respiratory failure with hypoxia Current Visit: No Status: Acute Assessment and plan: pt is stable at the present time He is DNR CCA A . Base line breathing at the present . continue to provide supportive treatment. Decrease lasi for now , Renal function getting worse slowly most likely due to dehydration (2) Leg wound, left Current Visit: No Status: Chronic Assessment and plan: gangrene toe , which seems to be a chronic issues he has severe PVD and has been seen at [facility] with further management of his disease . 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 Wound care for now no obvious sepsis or local infection although the wound smells . proper cleaning and dressing once or twice a day Consult to podiatry to see if the gangrene toe should be removed ,or if we should consider giving IV antibiotics ofr 6/8 weeks for his osteomylits . Before antibiotics a culture should be considered . will followup . 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 He denies ay acute pain or fever or chills no chest pain no nausea vomiting or diarrhea laying bed without any acute issues - Constitutional Vitals: Temp Pulse Resp BP Pulse Ox 97.5 F L 71 14 146/92 94 01/25/19 07:27 01/25/19 07:27 01/25/19 07:27 01/25/19 07:27 01/25/19 07:27 General appearance: Present: cooperative, A&O X 3, pleasant, no acute distress, answers questions appropriately - Head Head exam: Present: atraumatic - Eye Eye exam: Present: EOMI, PERRL. Absent: periorbital tenderness, sclera anicteric Pupils: Present: PERRL - Neck Neck exam general surgery: Present: supple. Absent: tenderness, nuchal rigidity - Respiratory Respiratory exam: Present: CTAB. Absent: decreased breath sounds, prolonged expiratory phase, rales, respiratory distress, rhonchi, wheezes, tachypnea - Cardiovascular Cardiovascular exam: Present: RRR, +S1, +S3, systolic murmur. Absent: irregular rhythm Additional comments: at aortic and mitral areas no radiation - GI/Abdominal GI/Abdominal exam: Present: normal bowel sounds, soft. Absent: guarding, rebound, rigid, tenderness Additional comments: no bruit noted - Extremities Exam Extremities exam: Absent: cyanotic, warm Additional comments: pulses pedal minimal ,no cyanosis ,gangrene of the right first toe fowl smell ing toe is almost ready to fall . wound on the heal as well , left leg small area laceration which is improving - Neurological Exam Neurological exam: Present: CN II-XII intact, oriented X3, no focal deficits, strengths equal and symetr throughout. Absent: pronater drift Internal Medicine: Result - Labs CBC & Chem 7: 01/24/19 11:05 01/24/19 11:05 Labs: Short CBC 01/24/19 Range/Units 11:05 WBC 5.6 (4.3-11.1) K/mcL Hgb 10.6 L (12.9-16.9) g/dL Hct 35.2 L (37.5-50.1) % Plt Count 139 L (140-400) K/mcL Neutrophils # 4.8 (1.6-8.9) K/mcL BMP 01/24/19 11:05 Sodium 140 Potassium 4.3 Chloride 99 Carbon Dioxide 36 H BUN 59 H Creatinine 1.45 H Glucose 122 H Calcium 8.8 Liver Function 01/24/19 Range/Units 11:05 Total Bilirubin 0.9 (0.3-1.0) mg/dL AST 15 (13-39) Units/L ALT 10 (7-52) Units/L Alkaline Phosphatase 90 (34-104) Units/L Albumin 3.2 L (3.5-5.7) g/dL Consult Discharge Plan - Plan Referrals: Mukesh Garcia MD [Primary Care Provider] -
[2019-01-25] MEDS: Acetaminophen 325 MG TABLET PO PRN (20:36)
[2019-01-26] MEDS: *HR* Enoxaparin 30 MG/0.3 ML SYRINGE SQ SCH (05:09)
--- NOTE | 2019-01-26 08:23 | Internal Med Progress Note ---
Date of Encounter: 01/26/19 Time of Encounter: 08:21 - Assessment and plan (1) Acute and chronic respiratory failure with hypoxia Current Visit: No Status: Acute Assessment and plan: Pt is stable and at his baseline . Continue to monitor, lasix was decreased ,to adjust his hydration . followup renal panel .No cough r fever. (2) Leg wound, left Current Visit: No Status: Chronic Assessment and plan: Gangrene toe , Chronic , Has severe PVD , podiatry input requested. May need amputation. On oral Doxy for some time.White cell normal . 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 not a surgical candidate. skin temperature is stable at the present time. - Subjective Interval history: Cross coverage . He feels that he is feeling little better then yesterday , breathing is baseline , no increase in pain or SOB , overall stable - Constitutional Vitals: Temp Pulse Resp BP Pulse Ox 97.6 F 73 17 161/88 93 01/25/19 21:11 01/25/19 21:11 01/25/19 21:11 01/25/19 21:11 01/25/19 21:11 General appearance: Present: cooperative, A&O X 3, pleasant, no acute distress, answers questions appropriately - Head Head exam: Present: atraumatic - Eye Eye exam: Present: EOMI, normal appearance, PERRL. Absent: scleral icterus Pupils: Present: PERRL - Neck Neck exam general surgery: Present: supple. Absent: tenderness, nuchal rigidity Additional comments: no JVD - Respiratory Respiratory exam: Present: decreased breath sounds, CTAB. Absent: accessory muscle use, chest wall tenderness, rales, respiratory distress, rhonchi, stri irvin, wheezes - Cardiovascular Cardiovascular exam: Present: RRR, +S1, +S2, systolic murmur Additional comments: at apex and aortic area no radiation - GI/Abdominal GI/Abdominal exam: Present: normal bowel sounds, soft. Absent: distended, firm, guarding, rigid, tenderness, no peritoneal signs - Extremities Exam Extremities exam: Absent: pedal edema Additional comments: left toe as before , gangrene no surrounding tissue inflammation - Neurological Exam Neurological exam: Present: CN II-XII intact, oriented X3, no focal deficits, strengths equal and symetr throughout. Absent: facial droop, speech deficit Internal Medicine: Result - Labs CBC & Chem 7: 01/24/19 11:05 01/24/19 11:05 Consult Discharge Plan - Plan Referrals: Mukesh Garcia MD [Primary Care Provider] -
[2019-01-26] MEDS: Cholecalciferol (D-3) 1,000 UNIT (25MCG) TABLET PO SCH (09:12)
[2019-01-26] MEDS: Vitamin E 200 UNIT (90MG) CAPSULE PO SCH (09:13)
[2019-01-26] MEDS: Doxycycline 100 MG CAPSULE PO SCH ×2 (09:14→21:18)
[2019-01-26] MEDS: Furosemide 20 MG TABLET PO SCH (09:14)
[2019-01-26] MEDS: Acetaminophen 325 MG TABLET PO PRN ×2 (09:14→16:14)
[2019-01-26] MEDS: Loratadine 10 MG TABLET PO SCH (09:15)
[2019-01-26] MEDS: Metoprolol XL (24 HR) Succ 25 MG TAB.ER.24H PO SCH (09:16)
[2019-01-26] MEDS: Aspirin Enteric Coated 81 MG Tablet PO SCH (09:16)
[2019-01-26] MEDS: Ascorbic Acid 500 MG TABLET PO SCH ×2 (09:16→21:18)
[2019-01-26] MEDS: traMADol 50 MG TABLET PO PRN (21:18)
[2019-01-27] MEDS: *HR* Enoxaparin 30 MG/0.3 ML SYRINGE SQ SCH (05:20)
[2019-01-27] MEDS: traMADol 50 MG TABLET PO PRN ×3 (05:21→21:25)
[2019-01-27 06:33] LABS: BUN/Creatinine Ratio 43 (6-26); Blood Urea Nitrogen 57 mg/dL (8-23); Calcium 8.8 mg/dL (8.6-10.3); Carbon Dioxide 34 mEq/L (23-29); Chloride 103 mEq/L (98-107); Glucose 102 mg/dL (70-105); Osmolality,Calculated 308 (280-300); Potassium 4.9 mEq/L (3.5-5.1); Sodium 141 mEq/L (136-145); eGFR For African Americans > 60 (> 60); eGFR For Non-African Americans 52 (> 60)
[2019-01-27] MEDS: Vitamin E 200 UNIT (90MG) CAPSULE PO SCH (09:47)
[2019-01-27] MEDS: Ascorbic Acid 500 MG TABLET PO SCH ×2 (09:48→21:24)
[2019-01-27] MEDS: Doxycycline 100 MG CAPSULE PO SCH ×2 (09:48→21:24)
[2019-01-27] MEDS: Loratadine 10 MG TABLET PO SCH (09:48)
[2019-01-27] MEDS: Cholecalciferol (D-3) 1,000 UNIT (25MCG) TABLET PO SCH (09:48)
[2019-01-27] MEDS: Metoprolol XL (24 HR) Succ 25 MG TAB.ER.24H PO SCH (09:48)
[2019-01-27] MEDS: Furosemide 20 MG TABLET PO SCH (09:48)
[2019-01-27] MEDS: Aspirin Enteric Coated 81 MG Tablet PO SCH (09:48)
--- NOTE | 2019-01-27 11:46 | Internal Med Progress Note ---
Date of Encounter: 01/27/19 Time of Encounter: 11:44 - Assessment and plan (1) Gangrene Current Visit: Yes Status: Chronic Assessment and plan: Left toe. Follow up with vascular as scheduled. (2) Urinary obstruction Current Visit: Yes Status: Chronic Assessment and plan: Continue to self cath. Patient states he is in this for many years due to BPH. (3) Atrial fibrillation Current Visit: Yes Status: Chronic Assessment and plan: Rate and rhythm stable. Continue current medication. Continue Lovenox. Qualifiers: Atrial fibrillation type: paroxysmal Qualified Code(s): I48.0 - Paroxysmal atrial fibrillation (4) CAD (coronary artery disease) Current Visit: Yes Status: Acute Assessment and plan: Stable. Denies chest pain. Continue current medication. Qualifiers: Coronary Disease-Associated Artery/Lesion type: [place] artery [place] vs. transplanted heart: [place] heart Associated angina: without angina Qualified Code(s): I25.10 - Atherosclerotic heart disease of [place] coronary artery without angina pectoris (5) CKD (chronic kidney disease) Current Visit: Yes Status: Chronic Assessment and plan: Stable. cr 1.32, Monitor labs. Avoid nephrotoxic agents. Qualifiers: Chronic kidney disease stage: stage 3 (moderate) Qualified Code(s): N18.3 - Chronic kidney disease, stage 3 (moderate) (6) CHF (congestive heart failure) Current Visit: Yes Status: Chronic Assessment and plan: Stable. Continue current medication. Monitor for decompensation. Qualifiers: Heart failure type: systolic Heart failure chronicity: chronic Qualified Code(s): I50.22 - Chronic systolic (congestive) heart failure - Time Spent With Patient less than 15 minutes - Subjective Interval history: Patient sitting up in [facility]. participating with therapy. states he feels tired. Patient denies chest pain, fever, chills, nausea vomiting or diarrhea. Denies shortness of breath. Maintaining O2 sats at 93% with 3 L per nasal cannula. - Constitutional Vitals: Temp Pulse Resp BP Pulse Ox 97.6 F 64 16 143/83 97 01/27/19 07:02 01/27/19 07:02 01/27/19 07:02 01/27/19 07:02 01/27/19 07:02 General appearance: Present: cooperative, A&O X 3, pleasant, no acute distress, answers questions appropriately - Head Head exam: Present: atraumatic, normocephalic - Eye Eye exam: Present: PERRL, conjuntiva pink, sclera anicteric Pupils: Present: PERRL - Neck Neck exam general surgery: Present: supple, trachea midline. Absent: lymphadenopathy - Respiratory Respiratory exam: Present: CTAB. Absent: accessory muscle use, rales, rhonchi, wheezes - Cardiovascular Cardiovascular exam: Present: irregular rhythm, +S1, +S2, systolic murmur. Absent: diastolic murmur, gallop, rubs Additional comments: murmur present. 09/04 - GI/Abdominal GI/Abdominal exam: Present: normal bowel sounds, soft, no peritoneal signs. Absent: distended, tenderness - Extremities Exam Extremities exam: Present: warm, radial pulses palpable and symmetrical. Absent: calf tenderness, cyanotic, pedal edema Additional comments: Left foot drsg dry and intact. - Neurological Exam Neurological exam: Present: CN II-XII intact, oriented X3, no focal deficits. Absent: pronater drift, facial droop, speech deficit - Skin Skin exam: Present: dry, intact Internal Medicine: Result - Labs CBC & Chem 7: 01/24/19 11:05 01/27/19 05:40 Labs: BMP 01/27/19 05:40 Sodium 141 Potassium 4.9 Chloride 103 Carbon Dioxide 34 H BUN 57 H Creatinine 1.32 H Glucose 102 Calcium 8.8 Consult Discharge Plan - Plan Referrals: Mukesh Garcia MD [Primary Care Provider] -
[2019-01-28] MEDS: *HR* Enoxaparin 30 MG/0.3 ML SYRINGE SQ SCH (04:52)
[2019-01-28] MEDS: traMADol 50 MG TABLET PO PRN ×2 (04:53→20:49)
[2019-01-28] MEDS: Cholecalciferol (D-3) 1,000 UNIT (25MCG) TABLET PO SCH (09:40)
[2019-01-28] MEDS: Vitamin E 200 UNIT (90MG) CAPSULE PO SCH (09:40)
[2019-01-28] MEDS: Loratadine 10 MG TABLET PO SCH (09:40)
[2019-01-28] MEDS: Acetaminophen 325 MG TABLET PO PRN (09:42)
[2019-01-28] MEDS: Doxycycline 100 MG CAPSULE PO SCH ×2 (09:42→20:49)
[2019-01-28] MEDS: Aspirin Enteric Coated 81 MG Tablet PO SCH (09:43)
[2019-01-28] MEDS: Metoprolol XL (24 HR) Succ 25 MG TAB.ER.24H PO SCH (09:44)
[2019-01-28] MEDS: Furosemide 20 MG TABLET PO SCH (09:44)
[2019-01-28] MEDS: Ascorbic Acid 500 MG TABLET PO SCH ×2 (09:45→20:49)
[2019-01-28 10:56] LABS: Basophils % 0.4 %; Eosinophils # 0.1 K/mcL (0.0-0.6); Eosinophils % 1.7 %; Hemoglobin 11.4 g/dL (12.9-16.9); Immature Granulocytes % 0.4 % (0-4); Lymphocytes # 0.5 K/mcL (0.6-4.6); Lymphocytes % 10.2 %; Mean Corpuscular HGB Conc 29.2 g/dL (31.6-35.5); Mean Corpuscular Hemoglobin 29.6 pg (28.0-33.3); Mean Corpuscular Volume 101.3 fL (83.0-100.0); Mean Platelet Volume 11.3 fL (9.4-12.4); Monocytes # 0.3 K/mcL (0.0-1.3); Monocytes % 6.4 %; Neutrophils # 3.8 K/mcL (1.6-8.9); Platelet Count 124 K/mcL (140-400); Red Blood Count 3.85 M/mcL (4.19-5.50); Segmented Neutrophils % 80.9 %; White Blood Count 4.7 K/mcL (4.3-11.1)
[2019-01-28 11:14] LABS: Alanine Aminotransferase 10 Units/L (7-52); Albumin 3.4 g/dL (3.5-5.7); Alkaline Phosphatase 85 Units/L (34-104); Aspartate Amino Transferase 14 Units/L (13-39); BUN/Creatinine Ratio 42 (6-26); Bilirubin,Total 0.9 mg/dL (0.3-1.0); Blood Urea Nitrogen 57 mg/dL (8-23); Calcium 8.9 mg/dL (8.6-10.3); Carbon Dioxide 35 mEq/L (23-29); Chloride 100 mEq/L (98-107); Globulin 3.5 g/dL (2.4-3.5); Glucose 114 mg/dL (70-105); Osmolality,Calculated 309 (280-300); Potassium 4.7 mEq/L (3.5-5.1); Sodium 141 mEq/L (136-145); Total Protein 6.9 g/dL (6.4-8.9); eGFR For African Americans > 60 (> 60); eGFR For Non-African Americans 50 (> 60)
--- NOTE | 2019-01-28 12:17 | Internal Med Progress Note ---
Date of Encounter: 01/28/19 Time of Encounter: 08:55 - Assessment and plan (1) Atherosclerosis of left lower extremity with gangrene Current Visit: No Status: Chronic Assessment and plan: We will continue supportive care. As mentioned previously, I believe that the patient is in denial about his prognosis. He has severe peripheral vascular disease which will lead to his demise if not resolved. Qualifiers: Peripheral atherosclerosis artery type: [place] artery Qualified Code(s): I70.262 - Atherosclerosis of [place] arteries of extremities with gangrene, left leg (2) CAD (coronary artery disease) Current Visit: Yes Status: Acute Assessment and plan: No current signs or symptoms. Qualifiers: Coronary Disease-Associated Artery/Lesion type: [place] artery [place] vs. transplanted heart: [place] heart Associated angina: without angina Qualified Code(s): I25.10 - Atherosclerotic heart disease of [place] coronary artery without angina pectoris (3) CVA (cerebral vascular accident) Current Visit: No Status: Acute Assessment and plan: No new deficits. Qualifiers: CVA mechanism: occlusion Precerebral and cerebral artery: middle cerebral artery Laterality of affected vessel: unspecified Qualified Code(s): I63.519 - Cerebral infarction due to unspecified occlusion or stenosis of unspecified middle cerebral artery (4) CKD (chronic kidney disease) Current Visit: Yes Status: Chronic Assessment and plan: Stable. Qualifiers: Chronic kidney disease stage: stage 3 (moderate) Qualified Code(s): N18.3 - Chronic kidney disease, stage 3 (moderate) (5) Atrial fibrillation Current Visit: Yes Status: Chronic Assessment and plan: Rate is controlled. Qualifiers: Atrial fibrillation type: paroxysmal Qualified Code(s): I48.0 - Paroxysmal atrial fibrillation (6) Diabetes Current Visit: No Status: Chronic Assessment and plan: Reasonable control on current regimen. Will continue sliding scale. Qualifiers: Diabetes mellitus type: type 2 Diabetes mellitus superintendent marine oil terminal insulin use: without snf use Diabetes mellitus complication status: with kidney complications Diabetes mellitus complication detail: with chronic kidney disease Chronic kidney disease stage: stage 3 (moderate) Qualified Code(s): E11.22 - Type 2 diabetes mellitus with diabetic chronic kidney disease; N18.3 - Chronic kidney disease, stage 3 (moderate) (7) CHF (congestive heart failure) Current Visit: Yes Status: Chronic Assessment and plan: No acute findings to suggest that he is having an exacerbation. Qualifiers: Heart failure type: systolic Heart failure chronicity: chronic Qualified Code(s): I50.22 - Chronic systolic (congestive) heart failure (8) COPD (chronic obstructive pulmonary disease) Current Visit: No Status: Chronic Assessment and plan: Limiting symptomatically but not acutely worse. Qualifiers: COPD type: emphysema Emphysema type: unspecified Qualified Code(s): J43.9 - Emphysema, unspecified (9) Abdominal pain Current Visit: Yes Status: Acute Assessment and plan: In this patient with cerebrovascular disease, will make sure that he has no changes. For this reason, CBC and abdominal series are obtained. I am concerned that he may have vascular ischemia to the bowel or gut. Per his request, therapies will be avoided, today. Qualifiers: Abdominal location: periumbilical Qualified Code(s): R10.33 - Periumbilical pain - Subjective Interval history: Patient states that he is not feeling well. He feels that he has abdominal pain. He denies constipation, nausea, emesis, etc. He has not been passing flatus. He denies associated chest pain, dyspnea, beyond his usual. Bladder seems to be functioning well. Patient has no complaint of chest discomfort, dyspnea, orthopnea, palpitations, nausea or vomiting, constipation or diarrhea, other changes in bowel habits, difficulty with urination, rash or itching, or other new complaints, except as mentioned above. Review of systems is otherwise negative. I discussed management of patient's care with nursing staff. - Constitutional Vitals: Temp Pulse Resp BP Pulse Ox 97.5 F L 70 14 140/86 97 01/28/19 08:44 01/28/19 08:44 01/28/19 08:44 01/28/19 08:44 01/28/19 08:44 Exam: Examination: (Except as mentioned above): General: In no apparent distress. Alert and oriented 3. Nondiaphoretic. Head: Atraumatic and normocephalic. Respiratory: No use of accessory muscles. Lungs are clear throughout. Normal airflow. Cardiovascular: Irregularly irregular consistent with atrial fibrillation, rate controlled, without change in murmur murmur appreciated. (He has a grade 3/6 sy stolic murmur at left lower sternal border and apex.) Abdomen: Bowel sounds are absent. No hepatosplenomegaly or mass are appreciated. He has minimal tenderness without guarding or rebound. This is periumbilical. Extremities: No cyanosis clubbing or edema. Left lower extremity wounds are not undressed, today. Skin: Warm and non-diaphoretic with no new lesions noted. Internal Medicine: Result - Labs CBC & Chem 7: 01/28/19 10:51 01/28/19 10:51 Labs: Short CBC 01/28/19 Range/Units 10:51 WBC 4.7 (4.3-11.1) K/mcL Hgb 11.4 L (12.9-16.9) g/dL Hct 39.0 (37.5-50.1) % Plt Count 124 L (140-400) K/mcL Neutrophils # 3.8 (1.6-8.9) K/mcL BMP 01/28/19 10:51 Sodium 141 Potassium 4.7 Chloride 100 Carbon Dioxide 35 H BUN 57 H Creatinine 1.35 H Glucose 114 H Calcium 8.9 Liver Function 01/28/19 Range/Units 10:51 Total Bilirubin 0.9 (0.3-1.0) mg/dL AST 14 (13-39) Units/L ALT 10 (7-52) Units/L Alkaline Phosphatase 85 (34-104) Units/L Albumin 3.4 L (3.5-5.7) g/dL - Impressions Impressions Chest/Abdomen X-ray 01/28/19 10:18 IMPRESSION: Cardiomegaly with chronic right pleural effusion and/or pleural thickening. No acute intra-abdominal abnormality. D/ / 01/28/2019 11:21:01 Brian Vann MD / [facility] Interpreting Provider: Brian Vann MD Consult Discharge Plan - Plan Referrals: Mukesh Garcia MD [Primary Care Provider] -
[2019-01-28] MEDS: Ondansetron ODT 4 MG TAB.RAPDIS SL PRN (13:39)
[2019-01-29] MEDS: traMADol 50 MG TABLET PO PRN ×2 (06:09→21:09)
[2019-01-29] MEDS: *HR* Enoxaparin 30 MG/0.3 ML SYRINGE SQ SCH (06:09)
[2019-01-29] MEDS: Cholecalciferol (D-3) 1,000 UNIT (25MCG) TABLET PO SCH (08:32)
[2019-01-29] MEDS: Ascorbic Acid 500 MG TABLET PO SCH ×2 (08:32→21:10)
[2019-01-29] MEDS: Loratadine 10 MG TABLET PO SCH (08:32)
[2019-01-29] MEDS: Metoprolol XL (24 HR) Succ 25 MG TAB.ER.24H PO SCH (08:33)
[2019-01-29] MEDS: Aspirin Enteric Coated 81 MG Tablet PO SCH (08:33)
[2019-01-29] MEDS: Doxycycline 100 MG CAPSULE PO SCH ×2 (08:33→21:10)
[2019-01-29] MEDS: Furosemide 20 MG TABLET PO SCH (08:33)
[2019-01-29] MEDS: Vitamin E 200 UNIT (90MG) CAPSULE PO SCH (08:33)
--- NOTE | 2019-01-29 10:43 | Internal Med Progress Note ---
Date of Encounter: 01/29/19 Time of Encounter: 10:41 - Assessment and plan (1) Gangrene of toe of left foot Current Visit: Yes Status: Acute Assessment and plan: No acute issues. Patient continues with complaints of pain to his left 2nd toe. No changes in exam of left foot. Dsg remains dry and intact. Patient continues to ambulate through physical therapy and tolerating well. We will continue with current plan of care (2) CHF exacerbation Current Visit: Yes Status: Acute Assessment and plan: No acute issues. Patient's lungs remain clear today with diminished breath sounds to basilar moreno and fine scattered rales. Respiratory effort appears relaxed. Denies any dyspnea. We will continue with current medications Qualifiers: Heart failure type: systolic Qualified Code(s): I50.23 - Acute on chronic systolic (congestive) heart failure (3) COPD exacerbation Current Visit: Yes Status: Acute Assessment and plan: No acute issues. Today patient's lungs are clear throughout with diminished breath sounds noted to lower moreno and scattered fine posterior rales. RR r elaxed. No apparent distress and no productive cough. (4) Chronic kidney disease, stage 3 Current Visit: Yes Status: Chronic Assessment and plan: No acute issues. We will continue to monitor patient's renal status serial labs. With current medications. (5) Atrial fibrillation Current Visit: Yes Status: Chronic Assessment and plan: Rate controlled with vent rate <100. No c/o palpitations or CP. Qualifiers: Atrial fibrillation type: paroxysmal Qualified Code(s): I48.0 - Paroxysmal atrial fibrillation (6) CAD (coronary artery disease) Current Visit: Yes Status: Acute Assessment and plan: No acute issues. Patient denies any chest discomforts or palpitations. Heart rate continues with controlled rate less than 100. We will continue with curren t therapy and medications Qualifiers: Coronary Disease-Associated Artery/Lesion type: [place] artery [place] vs. transplanted heart: [place] heart Associated angina: without angina Qualified Code(s): I25.10 - Atherosclerotic heart disease of [place] coronary artery without angina pectoris (7) Malaise Current Visit: Yes Status: Acute Assessment and plan: Patient with complaints having malaise. Denies any acute discomforts other than his left foot. Denies any dyspnea, fever or chills. Afebrile. Reason chest x- ray and abdominal x-ray shows no acute changes. We will continue to monitor cl osely. Patient refusing therapy today for a second time - Time Spent With Patient less than 15 minutes - Subjective Interval history: Patient appears relaxed. Patient states that he continues to experience malaise and does not feel strong enough today to participate in therapy. This will be the second day in a row that patient has refused therapy. Patient denies any abdominal discomforts or nausea. States that his issues with his abdomen has resolved. Patient had recent x-ray of abdomen which showed no acute process. Patient states he continues to have a throbbing type pain to his left foot at the site of his necrotic second toe. Patient with history of severe peripheral vascular disease. Patient denies any fever/chills, productive cough, dysuria, dyspnea or any other discomforts besides his left foot - Constitutional Vitals: Temp Pulse Resp BP Pulse Ox 97.5 F L 72 14 131/75 92 01/29/19 08:39 01/29/19 08:39 01/29/19 08:39 01/29/19 08:39 01/29/19 08:39 General appearance: Present: cooperative, A&O X 3, pleasant, no acute distress, answers questions appropriately - Head Head exam: Present: atraumatic, normocephalic - Eye Eye exam: Present: PERRL, conjuntiva pink, sclera anicteric Pupils: Present: PERRL - Neck Neck exam general surgery: Present: supple, trachea midline. Absent: lymphadenopathy - Respiratory Respiratory exam: Present: decreased breath sounds, CTAB, rales. Absent: accessory muscle use, rhonchi, wheezes Additional comments: Patient was scattered fine rales heard to lower lung moreno, more prominent on the left. Diminished basilar moreno. Respiratory effort appears relaxed while at rest. No productive cough. - Cardiovascular Cardiovascular exam: Present: irregular rhythm, RRR, +S1, +S2. Absent: diastolic murmur, gallop, rubs, systolic murmur - GI/Abdominal GI/Abdominal exam: Present: normal bowel sounds, soft, no peritoneal signs. Absent: distended, tenderness - Extremities Exam Extremities exam: Present: warm, radial pulses palpable and symmetrical. Abse nt: calf tenderness, cyanotic, pedal edema Additional comments: Patient with dressing that is dry and intact to his left lower leg and foot. - Neurological Exam Neurological exam: Present: CN II-XII intact, oriented X3, no focal deficits. Absent: pronater drift, facial droop, speech deficit - Skin Skin exam: Present: dry, intact Internal Medicine: Result - Labs CBC & Chem 7: 01/28/19 10:51 01/28/19 10:51 Labs: Short CBC 01/28/19 Range/Units 10:51 WBC 4.7 (4.3-11.1) K/mcL Hgb 11.4 L (12.9-16.9) g/dL Hct 39.0 (37.5-50.1) % Plt Count 124 L (140-400) K/mcL Neutrophils # 3.8 (1.6-8.9) K/mcL BMP 01/28/19 10:51 Sodium 141 Potassium 4.7 Chloride 100 Carbon Dioxide 35 H BUN 57 H Creatinine 1.35 H Glucose 114 H Calcium 8.9 Liver Function 01/28/19 Range/Units 10:51 Total Bilirubin 0.9 (0.3-1.0) mg/dL AST 14 (13-39) Units/L ALT 10 (7-52) Units/L Alkaline Phosphatase 85 (34-104) Units/L Albumin 3.4 L (3.5-5.7) g/dL - Impressions Impressions Chest/Abdomen X-ray 01/28/19 10:18 IMPRESSION: Cardiomegaly with chronic right pleural effusion and/or pleural thickening. No acute intra-abdominal abnormality. D/ / 01/28/2019 11:21:01 Brian Vann MD / [facility] Interpreting Provider: Brian Vann MD Consult Discharge Plan - Plan Referrals: Mukesh Garcia MD [Primary Care Provider] -
[2019-01-30] MEDS: *HR* Enoxaparin 30 MG/0.3 ML SYRINGE SQ SCH (05:06)
[2019-01-30] MEDS: traMADol 50 MG TABLET PO PRN ×2 (05:06→16:17)
[2019-01-30] MEDS: Vitamin E 200 UNIT (90MG) CAPSULE PO SCH (10:20)
[2019-01-30] MEDS: Doxycycline 100 MG CAPSULE PO SCH ×2 (10:20→20:51)
[2019-01-30] MEDS: Cholecalciferol (D-3) 1,000 UNIT (25MCG) TABLET PO SCH (10:20)
[2019-01-30] MEDS: Aspirin Enteric Coated 81 MG Tablet PO SCH (10:21)
[2019-01-30] MEDS: Furosemide 20 MG TABLET PO SCH (10:21)
[2019-01-30] MEDS: Ascorbic Acid 500 MG TABLET PO SCH ×2 (10:21→20:51)
[2019-01-30] MEDS: Metoprolol XL (24 HR) Succ 25 MG TAB.ER.24H PO SCH (10:21)
[2019-01-30] MEDS: Loratadine 10 MG TABLET PO SCH (10:21)
--- NOTE | 2019-01-30 11:39 | Internal Med Progress Note ---
Date of Encounter: 01/30/19 Time of Encounter: 11:36 - Assessment and plan (1) Atherosclerosis of left lower extremity with gangrene Current Visit: No Status: Chronic Assessment and plan: We will continue supportive care. We will see how he does after his home safety visit today. Hopefully, patient and son will understand better his need for 24 7 care and or ECF placement.. Qualifiers: Peripheral atherosclerosis artery type: [place] artery Qualified Code(s): I70.262 - Atherosclerosis of [place] arteries of extremities with gangrene, left leg (2) CAD (coronary artery disease) Current Visit: Yes Status: Acute Assessment and plan: Stable without current signs or symptoms. Qualifiers: Coronary Disease-Associated Artery/Lesion type: [place] artery [place] vs. transplanted heart: [place] heart Associated angina: without angina Qualified Code(s): I25.10 - Atherosclerotic heart disease of [place] coronary artery without angina pectoris (3) CVA (cerebral vascular accident) Current Visit: No Status: Acute Assessment and plan: No new symptoms. No new deficits. Qualifiers: CVA mechanism: occlusion Precerebral and cerebral artery: middle cerebral artery Laterality of affected vessel: unspecified Qualified Code(s): I63.519 - Cerebral infarction due to unspecified occlusion or stenosis of unspecified middle cerebral artery (4) CKD (chronic kidney disease) Current Visit: Yes Status: Chronic Assessment and plan: Remarkably stable. Qualifiers: Chronic kidney disease stage: stage 3 (moderate) Qualified Code(s): N18.3 - Chronic kidney disease, stage 3 (moderate) (5) Atrial fibrillation Current Visit: Yes Status: Chronic Assessment and plan: Stable and rate is controlled. Qualifiers: Atrial fibrillation type: paroxysmal Qualified Code(s): I48.0 - Paroxysmal atrial fibrillation (6) Diabetes Current Visit: No Status: Chronic Assessment and plan: We will continue current regimen as reasonable control Qualifiers: Diabetes mellitus type: type 2 Diabetes mellitus senior care insulin use: without termite technician use Diabetes mellitus complication status: with kidney comp lications Diabetes mellitus complication detail: with chronic kidney disease Chronic kidney disease stage: stage 3 (moderate) Qualified Code(s): E11.22 - Type 2 diabetes mellitus with diabetic chronic kidney disease; N18.3 - Chronic kidney disease, stage 3 (moderate) (7) CHF (congestive heart failure) Current Visit: Yes Status: Chronic Assessment and plan: No current findings to suggest he is in CHF, currently. Qualifiers: Heart failure type: systolic Heart failure chronicity: chronic Qualified Code(s): I50.22 - Chronic systolic (congestive) heart failure (8) COPD (chronic obstructive pulmonary disease) Current Visit: No Status: Chronic Assessment and plan: Clinically stable. Qualifiers: COPD type: emphysema Emphysema type: unspecified Qualified Code(s): J43.9 - Emphysema, unspecified (9) Abdominal pain Current Visit: Yes Status: Acute Assessment and plan: This has symptomatically resolved. Qualifiers: Abdominal location: periumbilical Qualified Code(s): R10.33 - Periumbilical pain - Subjective Interval history: Patient is feeling much better today but he can specifically tell me why. He feels like he has more energy and is looking forward to his home safety visit, this afternoon. Bowels and bladder are functioning well. He denies chest pain or pressure, lightheadedness, dizziness, fevers chills or sweats. He still has about 4 out of 10 pain at the left lower extremity but states this is actually better. Patient has no complaint of chest discomfort, dyspnea, orthopnea, palpitations, nausea or vomiting, constipation or diarrhea, other changes in bowel habits, difficulty with urination, rash or itching, or other new complaints, except as mentioned above. Review of systems is otherwise negative. I discussed management of patient's care with nursing staff. - Constitutional Vitals: Temp Pulse Resp BP Pulse Ox 97.9 F 80 18 145/88 92 01/30/19 07:53 01/30/19 07:53 01/30/19 07:53 01/30/19 07:53 01/30/19 07:53 Exam: Examination: (Except as mentioned above): General: In no apparent distress. Alert and oriented 3. Nondiaphoretic. Head: Atraumatic and normocephalic. Respiratory: No use of accessory muscles. Lungs are clear throughout. Normal airflow. Cardiovascular: Irregularly irregular consistent with atrial fibrillation, rate controlled, without murmur appreciated. Abdomen: Bowel sounds are normal. No hepatosplenomegaly mass or tenderness appreciated. Extremities: No cyanosis clubbing or edema. No cord or calf tenderness. Left third toe is still gangrenous and the toe next to it has significant area of diminished circulation at the tip. Skin: Warm and non-diaphoretic with no new lesions noted. Internal Medicine: Result - Labs CBC & Chem 7: 01/28/19 10:51 01/28/19 10:51 Consult Discharge Plan - Plan Referrals: Mukesh Garcia MD [Primary Care Provider] -
[2019-01-30] MEDS: Acetaminophen 325 MG TABLET PO PRN (21:32)
[2019-01-31] MEDS: *HR* Enoxaparin 30 MG/0.3 ML SYRINGE SQ SCH (06:04)
[2019-01-31] MEDS: traMADol 50 MG TABLET PO PRN ×2 (06:35→20:37)
[2019-01-31] MEDS: Acetaminophen 325 MG TABLET PO PRN (09:33)
[2019-01-31] MEDS: Doxycycline 100 MG CAPSULE PO SCH ×2 (09:33→20:26)
[2019-01-31] MEDS: Aspirin Enteric Coated 81 MG Tablet PO SCH (09:33)
[2019-01-31] MEDS: Ascorbic Acid 500 MG TABLET PO SCH ×2 (09:34→20:26)
[2019-01-31] MEDS: Loratadine 10 MG TABLET PO SCH (09:34)
[2019-01-31] MEDS: Furosemide 20 MG TABLET PO SCH (09:34)
[2019-01-31] MEDS: Metoprolol XL (24 HR) Succ 25 MG TAB.ER.24H PO SCH (09:34)
[2019-01-31] MEDS: Cholecalciferol (D-3) 1,000 UNIT (25MCG) TABLET PO SCH (09:34)
[2019-01-31] MEDS: Vitamin E 200 UNIT (90MG) CAPSULE PO SCH (09:34)
--- NOTE | 2019-01-31 11:44 | Internal Med Progress Note ---
Date of Encounter: 01/31/19 Time of Encounter: 11:42 - Assessment and plan (1) Gangrene of toe of left foot Current Visit: Yes Status: Acute Assessment and plan: No acute issues. Patient continues with complaints of pain to his left 2nd toe. No changes in exam of left foot. Dsg remains dry and intact. Patient continues with physical therapy and tolerating well. Nonweightbearing to the left foot. Will continue on current pain meds. We will continue with current plan of care (2) CHF exacerbation Current Visit: Yes Status: Acute Assessment and plan: No acute issues. Patient's lungs remain clear today with fine bibasilar rales. Respiratory effort appears relaxed. Denies any dyspnea. We will continue with current medications Qualifiers: Heart failure type: systolic Qualified Code(s): I50.23 - Acute on chronic systolic (congestive) heart failure (3) COPD exacerbation Current Visit: Yes Status: Acute Assessment and plan: No acute issues. Today patient's lungs are clear throughout with fine bibasilar rales. RR is relaxed. No apparent distress and no productive cough. (4) Chronic kidney disease, stage 3 Current Visit: Yes Status: Chronic Assessment and plan: No acute issues. We will continue to monitor patient's renal status serial labs. With current medications. (5) Atrial fibrillation Current Visit: Yes Status: Chronic Assessment and plan: Rate controlled with vent rate <100. No c/o palpitations or CP. Qualifiers: Atrial fibrillation type: paroxysmal Qualified Code(s): I48.0 - Paroxysmal atrial fibrillation (6) CAD (coronary artery disease) Current Visit: Yes Status: Acute Assessment and plan: No acute issues. Patient denies any chest discomforts or palpitations. Heart rate continues with controlled rate less than 100. We will continue with current therapy and medications Qualifiers: Coronary Disease-Associated Artery/Lesion type: [place] artery [place] vs. transplanted heart: [place] heart Associated angina: without angina Qualified Code(s): I25.10 - Atherosclerotic heart disease of [place] coronary artery without angina pectoris - Time Spent With Patient less than 15 minutes - Subjective Interval history: Patient appears relaxed. Patient states that he continues to experience malaise, but that it is improved. Patient states that he has been able to his pain in physical therapy and physical is to return to home. Patient denies any current dyspnea at rest, although he has have slight dyspnea during exertion. Patient states she continues to have a throbbing type pain to his left foot at the site of his left necrotic 2nd toe - Constitutional Vitals: Temp Pulse Resp BP Pulse Ox 97.8 F 74 16 137/88 94 01/30/19 20:11 01/30/19 20:11 01/30/19 20:11 01/30/19 20:11 01/30/19 20:11 General appearance: Present: cooperative, A&O X 3, pleasant, no acute distress, answers questions appropriately - Head Head exam: Present: atraumatic, normocephalic - Eye Eye exam: Present: PERRL, conjuntiva pink, sclera anicteric Pupils: Present: PERRL - Neck Neck exam general surgery: Present: supple, trachea midline. Absent: lymphadenopathy - Respiratory Respiratory exam: Present: decreased breath sounds, CTAB, rales. Absent: accessory muscle use, rhonchi, wheezes Additional comments: Fine bibasilar rales. RR relaxed at rest. No productive cough. - Cardiovascular Cardiovascular exam: Present: irregular rhythm, RRR, +S1, +S2. Absent: diastolic murmur, gallop, rubs, systolic murmur Additional comments: Heart rate remains irregular, but controlled with a ventricular rate less than 100. - GI/Abdominal GI/Abdominal exam: Present: normal bowel sounds, soft, no peritoneal signs. Absent: distended, tenderness - Extremities Exam Extremities exam: Present: warm, radial pulses palpable and symmetrical. Absent: calf tenderness, cyanotic, pedal edema Additional comments: Patient's left foot and ankle with dressing that remains dry and intact. - Neurological Exam Neurological exam: Present: CN II-XII intact, oriented X3, no focal deficits. Absent: pronater drift, facial droop, speech deficit - Skin Skin exam: Present: dry, intact Internal Medicine: Result - Labs CBC & Chem 7: 01/28/19 10:51 01/28/19 10:51 Consult Discharge Plan - Plan Referrals: Mukesh Garcia MD [Primary Care Provider] -
[2019-01-31] MEDS: Ondansetron ODT 4 MG TAB.RAPDIS SL PRN (17:27)
[2019-02-01] MEDS: *HR* Enoxaparin 30 MG/0.3 ML SYRINGE SQ SCH (05:49)
[2019-02-01] MEDS: Doxycycline 100 MG CAPSULE PO SCH ×2 (08:24→22:00)
[2019-02-01] MEDS: Vitamin E 200 UNIT (90MG) CAPSULE PO SCH (08:24)
[2019-02-01] MEDS: Aspirin Enteric Coated 81 MG Tablet PO SCH (08:25)
[2019-02-01] MEDS: Metoprolol XL (24 HR) Succ 25 MG TAB.ER.24H PO SCH (08:25)
[2019-02-01] MEDS: traMADol 50 MG TABLET PO PRN ×3 (08:25→22:00)
[2019-02-01] MEDS: Furosemide 20 MG TABLET PO SCH (08:25)
[2019-02-01] MEDS: Cholecalciferol (D-3) 1,000 UNIT (25MCG) TABLET PO SCH (08:25)
[2019-02-01] MEDS: Loratadine 10 MG TABLET PO SCH (08:26)
[2019-02-01] MEDS: Ascorbic Acid 500 MG TABLET PO SCH ×2 (08:26→22:00)
[2019-02-01] MEDS: Acetaminophen 325 MG TABLET PO PRN (11:44)
--- NOTE | 2019-02-01 12:11 | Internal Med Progress Note ---
Date of Encounter: 02/01/19 Time of Encounter: 14:00 - Subjective Interval history: dd - Assessment and plan (1) Gangrene of toe of left foot Current Visit: Yes Status: Acute Assessment and plan: No acute issues. . No changes in exam of left foot. Dsg remains dry and intact. Patient continues with physical therapy and tolerating well. Nonweightbearing to the left foot. Will continue on current pain meds. We will continue with current plan of care (2) CHF exacerbation Current Visit: Yes Status: Acute Assessment and plan: No acute issues. Patient's lungs remain clear today with fine bibasilar rales. Respiratory effort appears relaxed. Denies any dyspnea. We will continue with current medications Qualifiers: Heart failure type: systolic Qualified Code(s): I50.23 - Acute on chronic systolic (congestive) heart failure (3) COPD exacerbation Current Visit: Yes Status: Acute Assessment and plan: No acute issues. Today patient's lungs are clear throughout with fine bibasilar rales. RR is relaxed. No apparent distress and no productive cough. (4) Chronic kidney disease, stage 3 Current Visit: Yes Status: Chronic Assessment and plan: No acute issues. We will continue to monitor patient's renal status serial labs. With current medications. (5) Atrial fibrillation Current Visit: Yes Status: Chronic Assessment and plan: Rate controlled with vent rate <100. No c/o palpitations or CP. Qualifiers: Atrial fibrillation type: paroxysmal Qualified Code(s): I48.0 - Paroxysmal atrial fibrillation (6) CAD (coronary artery disease) Current Visit: Yes Status: Acute Assessment and plan: No acute issues. Patient denies any chest discomforts or palpitations. Heart rate continues with controlled rate less than 100. We will continue with current therapy and medications Qualifiers: Coronary Disease-Associated Artery/Lesion type: [place] artery [place] vs. transplanted heart: [place] heart Associated angina: without angina Qualified Code(s): I25.10 - Atherosclerotic heart disease of [place] coronary artery without angina pectoris - Time Spent With Patient less than 15 minutes - Subjective Interval history: Patient appears a little better today. Patient states that he continues to experience malaise, but that it is improved. Patient states that he has been able to his pain in physical therapy and physical is to return to home. Patient denies any current dyspnea at rest, although he has have slight dyspnea during exertion. Patient states she continues to have a throbbing type pain to his l eft foot at the site of his left necrotic 2nd toe - EXAM General appearance: Present: cooperative, A&O X 3, pleasant, no acute distress, answers questions appropriately - Head Head exam: Present: atraumatic, normocephalic - Eye Eye exam: Present: PERRL, conjuntiva pink, sclera anicteric Pupils: Present: PERRL - Neck Neck exam general surgery: Present: supple, trachea midline. Absent: lymphadenopathy - Respiratory Respiratory exam: Present: decreased breath sounds, CTAB, rales. Absent: accessory muscle use, rhonchi, wheezes Additional comments: Fine bibasilar rales. RR relaxed at rest. No productive cough. - Cardiovascular Cardiovascular exam: Present: irregular rhythm, RRR, +S1, +S2. Absent: diastolic murmur, gallop, rubs, systolic murmur Additional comments: Heart rate remains irregular, but controlled with a ventricular rate less than 100. - GI/Abdominal GI/Abdominal exam: Present: normal bowel sounds, soft, no peritoneal signs. Absent: distended, tenderness - Extremities Exam Extremities exam: Present: warm, radial pulses palpable and symmetrical. Absent: calf tenderness, cyanotic, pedal edema Additional comments: Patient's left foot and ankle with dressing that remains dry and intact. - Neurological Exam Neurological exam: Present: CN II-XII intact, oriented X3, no focal deficits. Absent: pronater drift, facial droop, speech deficit - Skin Skin exam: Present: dry, intact - Constitutional Vitals: Temp Pulse Resp BP Pulse Ox 97.6 F 72 16 132/80 94 02/01/19 07:23 02/01/19 07:23 02/01/19 07:23 02/01/19 07:23 02/01/19 07:23 General appearance: Present: cooperative, A&O X 3, pleasant, no acute distress, answers questions appropriately Internal Medicine: Result - Labs CBC & Chem 7: 01/28/19 10:51 01/28/19 10:51 Consult Discharge Plan - Plan Referrals: Mukesh Garcia MD [Primary Care Provider] -
[2019-02-02] MEDS: *HR* Enoxaparin 30 MG/0.3 ML SYRINGE SQ SCH (06:06)
[2019-02-02] MEDS: Vitamin E 200 UNIT (90MG) CAPSULE PO SCH (09:29)
[2019-02-02] MEDS: Furosemide 20 MG TABLET PO SCH (09:29)
[2019-02-02] MEDS: Cholecalciferol (D-3) 1,000 UNIT (25MCG) TABLET PO SCH (09:29)
[2019-02-02] MEDS: Ascorbic Acid 500 MG TABLET PO SCH ×2 (09:30→20:16)
[2019-02-02] MEDS: Aspirin Enteric Coated 81 MG Tablet PO SCH (09:30)
[2019-02-02] MEDS: Doxycycline 100 MG CAPSULE PO SCH ×2 (09:30→20:16)
[2019-02-02] MEDS: Loratadine 10 MG TABLET PO SCH (09:30)
[2019-02-02] MEDS: Metoprolol XL (24 HR) Succ 25 MG TAB.ER.24H PO SCH (09:30)
[2019-02-02] MEDS: traMADol 50 MG TABLET PO PRN (20:16)
[2019-02-03] MEDS: *HR* Enoxaparin 30 MG/0.3 ML SYRINGE SQ SCH (05:54)
[2019-02-03] MEDS: Cholecalciferol (D-3) 1,000 UNIT (25MCG) TABLET PO SCH (09:30)
[2019-02-03] MEDS: Vitamin E 200 UNIT (90MG) CAPSULE PO SCH (09:30)
[2019-02-03] MEDS: Aspirin Enteric Coated 81 MG Tablet PO SCH (09:30)
[2019-02-03] MEDS: Ascorbic Acid 500 MG TABLET PO SCH ×2 (09:30→21:16)
[2019-02-03] MEDS: Metoprolol XL (24 HR) Succ 25 MG TAB.ER.24H PO SCH (09:30)
[2019-02-03] MEDS: Loratadine 10 MG TABLET PO SCH (09:31)
[2019-02-03] MEDS: Furosemide 20 MG TABLET PO SCH (09:31)
[2019-02-03] MEDS: Doxycycline 100 MG CAPSULE PO SCH ×2 (09:31→21:16)
[2019-02-03] MEDS: traMADol 50 MG TABLET PO PRN ×2 (09:31→21:16)
--- NOTE | 2019-02-03 10:59 | Internal Med Progress Note ---
Date of Encounter: 02/03/19 Time of Encounter: 10:53 - Assessment and plan (1) Gangrene of toe of left foot Current Visit: Yes Status: Acute Assessment and plan: No acute issues. Patient continues with complaints of pain to his left 2nd toe. No changes in exam of left foot. Dsg remains dry and intact. Patient continues with physical therapy and tolerating well. Nonweightbearing to the left foot. Will continue on current pain meds. We will continue with current plan of care (2) CHF exacerbation Current Visit: Yes Status: Acute Assessment and plan: No acute issues. Patient's lungs remain clear today with fine bibasilar rales. Respiratory effort appears relaxed. Denies any dyspnea. We will continue with current medications Qualifiers: Heart failure type: systolic Qualified Code(s): I50.23 - Acute on chronic systolic (congestive) heart failure (3) COPD exacerbation Current Visit: Yes Status: Acute Assessment and plan: No acute issues. Today patient's lungs are clear throughout with fine bibasilar rales. RR is relaxed. No apparent distress and no productive cough. (4) Chronic kidney disease, stage 3 Current Visit: Yes Status: Chronic Assessment and plan: No acute issues. We will continue to monitor patient's renal status serial labs. With current medications. (5) Atrial fibrillation Current Visit: Yes Status: Chronic Assessment and plan: Rate controlled with vent rate <100. No c/o palpitations or CP. Qualifiers: Atrial fibrillation type: paroxysmal Qualified Code(s): I48.0 - Paroxysmal atrial fibrillation (6) CAD (coronary artery disease) Current Visit: Yes Status: Acute Assessment and plan: No acute issues. Patient denies any chest discomforts or palpitations. Heart rate continues with controlled rate less than 100. We will continue with current therapy and medications Qualifiers: Coronary Disease-Associated Artery/Lesion type: [place] artery [place] vs. transplanted heart: [place] heart Associated angina: without angina Qualified Code(s): I25.10 - Atherosclerotic heart disease of [place] coronary artery without angina pectoris - Time Spent With Patient less than 15 minutes - Subjective Interval history: Patient appears relaxed. Patient states that his malaise feeling has resolved and that he has been participating in therapy with hopes of returning home soon. Patient states that he has been able to his pain in physical therapy and physical is to return to home. Patient denies any current dyspnea at rest, although he has have slight dyspnea during exertion. Patient states she continues to have a throbbing type pain to his left foot at the site of his left necrotic 2nd toe - Constitutional Vitals: Temp Pulse Resp BP Pulse Ox 98.0 F 85 16 143/89 93 02/03/19 07:14 02/03/19 07:14 02/03/19 07:14 02/03/19 07:14 02/03/19 07:14 General appearance: Present: cooperative, A&O X 3, pleasant, no acute distress, answers questions appropriately - Head Head exam: Present: atraumatic, normocephalic - Eye Eye exam: Present: PERRL, conjuntiva pink, sclera anicteric Pupils: Present: PERRL - Neck Neck exam general surgery: Present: supple, trachea midline. Absent: lymphade nopathy - Respiratory Respiratory exam: Present: decreased breath sounds, CTAB, rales. Absent: accessory muscle use, rhonchi, wheezes Additional comments: Lungs are clear to upper [place] with diminished breath sounds to lower. Noted fine rales scattered throughout basilar [place]. Respiratory effort appears relaxed. No productive cough. - Cardiovascular Cardiovascular exam: Present: irregular rhythm, RRR, +S1, +S2. Absent: diastolic murmur, gallop, rubs, systolic murmur - GI/Abdominal GI/Abdominal exam: Present: normal bowel sounds, soft, no peritoneal signs. Absent: distended, tenderness - Extremities Exam Extremities exam: Present: warm, radial pulses palpable and symmetrical. Absent: calf tenderness, cyanotic, pedal edema Additional comments: Left lower leg with dressing to ankle and foot, which is dry and intact. - Neurological Exam Neurological exam: Present: CN II-XII intact, oriented X3, no focal deficits. Absent: pronater drift, facial droop, speech deficit - Skin Skin exam: Present: dry, intact Internal Medicine: Result - Labs CBC & Chem 7: 01/28/19 10:51 01/28/19 10:51 Consult Discharge Plan - Plan Referrals: Mukesh Garcia MD [Primary Care Provider] -
--- NOTE | 2019-02-03 15:58 | Internal Med Progress Note ---
Date of Encounter: 02/02/19 Time of Encounter: 15:50 - Subjective Interval history: dd - Assessment and plan (1) Gangrene of toe of left foot Current Visit: Yes Status: Acute Assessment and plan: No acute issues. . No changes in exam of left foot. Dsg remains dry and intact. Patient continues with physical therapy and tolerating well. Nonweightbearing to the left foot. Will continue on current pain meds. We will continue with current plan of care (2) CHF exacerbation Current Visit: Yes Status: Acute Assessment and plan: No acute issues. Patient's lungs remain clear today with fine bibasilar rales. Respiratory effort appears relaxed. Denies any dyspnea. We will continue with current medications Qualifiers: Heart failure type: systolic Qualified Code(s): I50.23 - Acute on chronic systolic (congestive) heart failure (3) COPD exacerbation Current Visit: Yes Status: Acute Assessment and plan: No acute issues. Today patient's lungs are clear throughout with fine bibasilar rales. RR is relaxed. No apparent distress and no productive cough. (4) Chronic kidney disease, stage 3 Current Visit: Yes Status: Chronic Assessment and plan: No acute issues. We will continue to monitor patient's renal status serial labs. With current medications. (5) Atrial fibrillation Current Visit: Yes Status: Chronic Assessment and plan: Rate controlled with vent rate <100. No c/o palpitations or CP. Qualifiers: Atrial fibrillation type: paroxysmal Qualified Code(s): I48.0 - Paroxysmal atrial fibrillation (6) CAD (coronary artery disease) Current Visit: Yes Status: Acute Assessment and plan: No acute issues. Patient denies any chest discomforts or palpitations. Heart rate continues with controlled rate less than 100. We will continue with current therapy and medications Qualifiers: Coronary Disease-Associated Artery/Lesion type: [place] artery [place] vs. transplanted heart: [place] heart Associated angina: without angina Qualified Code(s): I25.10 - Atherosclerotic heart disease of [place] coronary artery without angina pectoris - Time Spent With Patient less than 15 minutes - Subjective Interval history: Patient appears a little better today. Patient states that he continues to experience malaise, but that it is improved. Patient states that he has been able to his pain in physical therapy and physical is to return to home. Patient denies any current dyspnea at rest, although he has have slight dyspnea during exertion. Patient states she continues to have a throbbing type pain to his l eft foot at the site of his left necrotic 2nd toe - EXAM General appearance: Present: cooperative, A&O X 3, pleasant, no acute distress, answers questions appropriately - Head Head exam: Present: atraumatic, normocephalic - Eye Eye exam: Present: PERRL, conjuntiva pink, sclera anicteric Pupils: Present: PERRL - Neck Neck exam general surgery: Present: supple, trachea midline. Absent: lymphadenopathy - Respiratory Respiratory exam: Present: decreased breath sounds, CTAB, rales. Absent: accessory muscle use, rhonchi, wheezes Additional comments: Fine bibasilar rales. RR relaxed at rest. No productive cough. - Cardiovascular Cardiovascular exam: Present: irregular rhythm, RRR, +S1, +S2. Absent: diastolic murmur, gallop, rubs, systolic murmur Additional comments: Heart rate remains irregular, but controlled with a ventricular rate less than 100. - GI/Abdominal GI/Abdominal exam: Present: normal bowel sounds, soft, no peritoneal signs. Absent: distended, tenderness - Extremities Exam Extremities exam: Present: warm, radial pulses palpable and symmetrical. Absent: calf tenderness, cyanotic, pedal edema Additional comments: Patient's left foot and ankle with dressing that remains dry and intact. - Neurological Exam Neurological exam: Present: CN II-XII intact, oriented X3, no focal deficits. Absent: pronater drift, facial droop, speech deficit - Skin Skin exam: Present: dry, intact - Constitutional Vitals: Temp Pulse Resp BP Pulse Ox 98.0 F 85 16 143/89 93 02/03/19 07:14 02/03/19 07:14 02/03/19 07:14 02/03/19 07:14 02/03/19 07:14 General appearance: Present: cooperative, A&O X 3, pleasant, no acute distress, answers questions appropriately Internal Medicine: Result - Labs CBC & Chem 7: 01/28/19 10:51 01/28/19 10:51 Consult Discharge Plan - Plan Referrals: Mukesh Garcia MD [Primary Care Provider] -
[2019-02-04] MEDS: traMADol 50 MG TABLET PO PRN ×3 (05:48→20:56)
[2019-02-04] MEDS: *HR* Enoxaparin 30 MG/0.3 ML SYRINGE SQ SCH (05:50)
--- NOTE | 2019-02-04 09:10 | Internal Med Progress Note ---
Date of Encounter: 02/04/19 Time of Encounter: 09:09 - Assessment and plan (1) Gangrene Current Visit: Yes Status: Chronic Assessment and plan: Left toe. Follow up with vascular as scheduled. (2) Urinary obstruction Current Visit: Yes Status: Chronic Assessment and plan: Continue to self cath. Patient states he is in this for many years due to BPH. (3) Atrial fibrillation Current Visit: Yes Status: Chronic Assessment and plan: Rate and rhythm stable. Continue current medication. Continue Lovenox. Qualifiers: Atrial fibrillation type: paroxysmal Qualified Code(s): I48.0 - Paroxysmal atrial fibrillation (4) CAD (coronary artery disease) Current Visit: Yes Status: Acute Assessment and plan: Stable. Denies chest pain. Continue current medication. Qualifiers: Coronary Disease-Associated Artery/Lesion type: [place] artery [place] vs. transplanted heart: [place] heart Associated angina: without angina Qualified Code(s): I25.10 - Atherosclerotic heart disease of [place] coronary artery without angina pectoris (5) CKD (chronic kidney disease) Current Visit: Yes Status: Chronic Assessment and plan: Stable. cr 1.32, Monitor labs. Avoid nephrotoxic agents. Qualifiers: Chronic kidney disease stage: stage 3 (moderate) Qualified Code(s): N18.3 - Chronic kidney disease, stage 3 (moderate) (6) CHF (congestive heart failure) Current Visit: Yes Status: Chronic Assessment and plan: Stable. Continue current medication. Monitor for decompensation. Qualifiers: Heart failure type: systolic Heart failure chronicity: chronic Qualified Code(s): I50.22 - Chronic systolic (congestive) heart failure - Time Spent With Patient less than 15 minutes - Subjective Interval history: Patient sitting up at side of bed. participating with therapy. Patient denies chest pain, fever, chills, nausea vomiting or diarrhea. Denies shortness of breath. Maintaining O2 sats at 93% with 3 L per nasal cannula. practiced driving scooter yesterday with therapy. scheduled for discharge on 02/07/2019 - Constitutional Vitals: Temp Pulse Resp BP Pulse Ox 97.6 F 71 14 133/86 94 02/04/19 07:52 02/04/19 07:52 02/04/19 07:52 02/04/19 07:52 02/04/19 07:52 General appearance: Present: cooperative, A&O X 3, pleasant, no acute distress, answers questions appropriately - Head Head exam: Present: atraumatic, normocephalic - Eye Eye exam: Present: PERRL, conjuntiva pink, sclera anicteric Pupils: Present: PERRL - Neck Neck exam general surgery: Present: supple, trachea midline. Absent: lymphadenopathy - Respiratory Respiratory exam: Present: CTAB. Absent: accessory muscle use, rales, rhonchi, wheezes - Cardiovascular Cardiovascular exam: Present: irregular rhythm, +S1, +S2. Absent: diastolic murmur, gallop, rubs, systolic murmur - GI/Abdominal GI/Abdominal exam: Present: normal bowel sounds, soft, no peritoneal signs. Absent: distended, tenderness - Extremities Exam Extremities exam: Present: warm, radial pulses palpable and symmetrical. Absent: calf tenderness, cyanotic, pedal edema - Neurological Exam Neurological exam: Present: CN II-XII intact, oriented X3, no focal deficits. Absent: pronater drift, facial droop, speech deficit - Skin Skin exam: Present: dry, intact Additional comments: left foot drsg dry and intact. Internal Medicine: Result - Labs CBC & Chem 7: 01/28/19 10:51 01/28/19 10:51 Consult Discharge Plan - Plan Referrals: Mukesh Garcia MD [Primary Care Provider] -
[2019-02-04] MEDS: Acetaminophen 325 MG TABLET PO PRN (09:19)
[2019-02-04] MEDS: Ascorbic Acid 500 MG TABLET PO SCH ×2 (09:19→20:57)
[2019-02-04] MEDS: Furosemide 20 MG TABLET PO SCH (09:19)
[2019-02-04] MEDS: Cholecalciferol (D-3) 1,000 UNIT (25MCG) TABLET PO SCH (09:19)
[2019-02-04] MEDS: Doxycycline 100 MG CAPSULE PO SCH ×2 (09:20→20:56)
[2019-02-04] MEDS: Vitamin E 200 UNIT (90MG) CAPSULE PO SCH (09:20)
[2019-02-04] MEDS: Loratadine 10 MG TABLET PO SCH (09:20)
[2019-02-04] MEDS: Metoprolol XL (24 HR) Succ 25 MG TAB.ER.24H PO SCH (09:20)
[2019-02-04] MEDS: Aspirin Enteric Coated 81 MG Tablet PO SCH (09:22)
[2019-02-05] MEDS: traMADol 50 MG TABLET PO PRN ×3 (05:29→22:10)
[2019-02-05] MEDS: *HR* Enoxaparin 30 MG/0.3 ML SYRINGE SQ SCH (05:29)
[2019-02-05] MEDS: Doxycycline 100 MG CAPSULE PO SCH ×2 (09:49→22:06)
[2019-02-05] MEDS: Vitamin E 200 UNIT (90MG) CAPSULE PO SCH (09:49)
[2019-02-05] MEDS: Loratadine 10 MG TABLET PO SCH (09:49)
[2019-02-05] MEDS: Metoprolol XL (24 HR) Succ 25 MG TAB.ER.24H PO SCH (09:49)
[2019-02-05] MEDS: Aspirin Enteric Coated 81 MG Tablet PO SCH (09:49)
[2019-02-05] MEDS: Cholecalciferol (D-3) 1,000 UNIT (25MCG) TABLET PO SCH (09:49)
[2019-02-05] MEDS: Furosemide 20 MG TABLET PO SCH (09:49)
[2019-02-05] MEDS: Ascorbic Acid 500 MG TABLET PO SCH ×2 (09:49→22:06)
--- NOTE | 2019-02-05 14:46 | Internal Med Progress Note ---
Date of Encounter: 02/05/19 Time of Encounter: 14:45 - Assessment and plan (1) Gangrene of toe of left foot Current Visit: Yes Status: Acute Assessment and plan: No acute issues. Patient continues with complaints of pain to his left 2nd toe. No changes in exam of left foot. Dsg remains dry and intact. Patient continues with physical therapy and tolerating well. Nonweightbearing to the left foot. Will continue on current pain meds. We will continue with current plan of care (2) CHF exacerbation Current Visit: Yes Status: Acute Assessment and plan: No acute issues. Patient's lungs remain clear today with fine bibasilar rales. Respiratory effort appears relaxed. Denies any dyspnea. We will continue with current medications Qualifiers: Heart failure type: systolic Qualified Code(s): I50.23 - Acute on chronic systolic (congestive) heart failure (3) COPD exacerbation Current Visit: Yes Status: Acute Assessment and plan: No acute issues. Today patient's lungs are clear throughout with fine bibasilar rales. RR is relaxed. No apparent distress and no productive cough. (4) Chronic kidney disease, stage 3 Current Visit: Yes Status: Chronic Assessment and plan: No acute issues. We will continue to monitor patient's renal status serial labs. With current medications. (5) Atrial fibrillation Current Visit: Yes Status: Chronic Assessment and plan: Rate controlled with vent rate <100. No c/o palpitations or CP. Qualifiers: Atrial fibrillation type: paroxysmal Qualified Code(s): I48.0 - Paroxysmal atrial fibrillation (6) CAD (coronary artery disease) Current Visit: Yes Status: Acute Assessment and plan: No acute issues. Patient denies any chest discomforts or palpitations. Heart rate continues with controlled rate less than 100. We will continue with current therapy and medications Qualifiers: Coronary Disease-Associated Artery/Lesion type: [place] artery [place] vs. transplanted heart: [place] heart Associated angina: without angina Qualified Code(s): I25.10 - Atherosclerotic heart disease of [place] coronary artery without angina pectoris - Time Spent With Patient less than 15 minutes - Subjective Interval history: Patient appears relaxed. Patient states that his malaise feeling has resolved and that he has been participating in therapy with hopes of returning home soon. Patient states that he has been able to his pain in physical therapy and physical is to return to home. Patient denies any current dyspnea at rest, although he has have slight dyspnea during exertion. Patient states she continues to have a throbbing type pain to his left foot at the site of his left necrotic 2nd toe - Constitutional Vitals: Temp Pulse Resp BP Pulse Ox 97.3 F L 67 12 133/79 96 02/04/19 19:15 02/04/19 19:15 02/04/19 19:15 02/04/19 19:15 02/04/19 19:15 General appearance: Present: cooperative, A&O X 3, pleasant, no acute distress, answers questions appropriately - Head Head exam: Present: atraumatic, normocephalic - Eye Eye exam: Present: PERRL, conjuntiva pink, sclera anicteric Pupils: Present: PERRL - Neck Neck exam general surgery: Present: supple, trachea midline. Absent: lymphad enopathy - Respiratory Respiratory exam: Present: CTAB. Absent: accessory muscle use, rales, rhonchi, wheezes - Cardiovascular Cardiovascular exam: Present: RRR, +S1, +S2. Absent: diastolic murmur, gallop, rubs, systolic murmur - GI/Abdominal GI/Abdominal exam: Present: normal bowel sounds, soft, no peritoneal signs. Absent: distended, tenderness - Extremities Exam Extremities exam: Present: warm, radial pulses palpable and symmetrical. Absent: calf tenderness, cyanotic, pedal edema Additional comments: Patient with dressing to left lower leg and foot which remains dry and intact. Protective boot on - Neurological Exam Neurological exam: Present: CN II-XII intact, oriented X3, no focal deficits. Absent: pronater drift, facial droop, speech deficit - Skin Skin exam: Present: dry, intact Internal Medicine: Result - Labs CBC & Chem 7: 01/28/19 10:51 01/28/19 10:51 Consult Discharge Plan - Plan Referrals: Mukesh Garcia MD [Primary Care Provider] -
[2019-02-06] MEDS: *HR* Enoxaparin 30 MG/0.3 ML SYRINGE SQ SCH (06:28)
[2019-02-06] MEDS: traMADol 50 MG TABLET PO PRN ×3 (06:32→21:31)
[2019-02-06] MEDS: Doxycycline 100 MG CAPSULE PO SCH ×2 (09:20→20:27)
[2019-02-06] MEDS: Furosemide 20 MG TABLET PO SCH (09:21)
[2019-02-06] MEDS: Vitamin E 200 UNIT (90MG) CAPSULE PO SCH (09:21)
[2019-02-06] MEDS: Ascorbic Acid 500 MG TABLET PO SCH ×2 (09:21→20:27)
[2019-02-06] MEDS: Cholecalciferol (D-3) 1,000 UNIT (25MCG) TABLET PO SCH (09:21)
[2019-02-06] MEDS: Metoprolol XL (24 HR) Succ 25 MG TAB.ER.24H PO SCH (09:21)
[2019-02-06] MEDS: Aspirin Enteric Coated 81 MG Tablet PO SCH (09:21)
[2019-02-06] MEDS: Loratadine 10 MG TABLET PO SCH (09:21)
--- NOTE | 2019-02-06 12:04 | Internal Med Progress Note ---
Date of Encounter: 02/06/19 Time of Encounter: 12:02 - Assessment and plan (1) Gangrene of toe of left foot Current Visit: Yes Status: Acute Assessment and plan: No acute issues. Patient continues with complaints of pain to his left 2nd toe. No changes in exam of left foot. Dsg remains dry and intact. Patient continues with physical therapy and tolerating well. Nonweightbearing to the left foot. Will continue on current pain meds. We will continue with current plan of care. Patient being prepared for discharge to home tomorrow (2) CHF exacerbation Current Visit: Yes Status: Acute Assessment and plan: No acute issues. Patient's lungs remain clear today with fine scattered rales heard to lower moreno. Respiratory effort appears relaxed and he denies any productive cough. Denies any dyspnea, except during therapy. We will continue with current medications Qualifiers: Heart failure type: systolic Qualified Code(s): I50.23 - Acute on chronic systolic (congestive) heart failure (3) COPD exacerbation Current Visit: Yes Status: Acute Assessment and plan: No acute issues. Today patient's lungs are clear throughout with fine scattered rales heard to lower moreno. RR is relaxed. No apparent distress and no productive cough. (4) Chronic kidney disease, stage 3 Current Visit: Yes Status: Chronic Assessment and plan: No acute issues. We will continue to monitor patient's renal status serial labs. With current medications. (5) Atrial fibrillation Current Visit: Yes Status: Chronic Assessment and plan: Rate controlled with vent rate <100. No c/o palpitations or CP. (6) CAD (coronary artery disease) Current Visit: Yes Status: Acute Assessment and plan: No acute issues. Patient denies any chest discomforts or palpitations. Heart rate continues with controlled rate less than 100. We will continue with current therapy and medications Qualifiers: Coronary Disease-Associated Artery/Lesion type: [place] artery [place] vs. t ransplanted heart: [place] heart Associated angina: without angina Qualified Code(s): I25.10 - Atherosclerotic heart disease of [place] coronary artery without angina pectoris - Time Spent With Patient less than 15 minutes - Subjective Interval history: Patient appears relaxed. Patient states that he feels well today and that he is anxious to be discharged home tomorrow. Patient states that he has been able to his pain in physical therapy and physical is to return to home. Patient denies any current dyspnea at rest, although he has have slight dyspnea during exertion. Patient states she continues to have a throbbing type pain to his left foot at the site of his left necrotic 2nd toe - Constitutional Vitals: Temp Pulse Resp BP Pulse Ox 97.6 F 104 16 147/87 94 02/06/19 07:18 02/06/19 07:18 02/06/19 07:18 02/06/19 07:18 02/06/19 07:18 General appearance: Present: cooperative, A&O X 3, pleasant, no acute distress, answers questions appropriately - Head Head exam: Present: atraumatic, normocephalic - Eye Eye exam: Present: PERRL, conjuntiva pink, sclera anicteric Pupils: Present: PERRL - Neck Neck exam general surgery: Present: supple, trachea midline. Absent: lymphadenopathy - Respiratory Respiratory exam: Present: CTAB, rales. Absent: accessory muscle use, rhonchi, wheezes Additional comments: Patient with scattered fine rales noted to lower half of moreno. Respiratory effort appears relaxed while at rest. Denies any productive cough - Cardiovascular Cardiovascular exam: Present: RRR, +S1, +S2. Absent: diastolic murmur, gallop, rubs, systolic murmur - GI/Abdominal GI/Abdominal exam: Present: normal bowel sounds, soft, no peritoneal signs. Absent: distended, tenderness - Extremities Exam Extremities exam: Present: warm, radial pulses palpable and symmetrical. Absent: calf tenderness, cyanotic, pedal edema Additional comments: Left lower leg with wrap dressing in place, which is dry and intact. - Neurological Exam Neurological exam: Present: CN II-XII intact, oriented X3, no focal deficits. Absent: pronater drift, facial droop, speech deficit - Skin Skin exam: Present: dry, intact Internal Medicine: Result - Labs CBC & Chem 7: 01/28/19 10:51 01/28/19 10:51 Consult Discharge Plan - Plan Referrals: Mukesh Garcia MD [Primary Care Provider] -
[2019-02-06] MEDS ORDERED: Lidocaine Jelly 11 ml Syringe TP ONE (16:40)
[2019-02-06] MEDS: Acetaminophen 325 MG TABLET PO PRN (20:27)
[2019-02-07] MEDS: *HR* Enoxaparin 30 MG/0.3 ML SYRINGE SQ SCH (05:30)
[2019-02-07] MEDS: Doxycycline 100 MG CAPSULE PO SCH (07:53)
[2019-02-07] MEDS: Vitamin E 200 UNIT (90MG) CAPSULE PO SCH (07:53)
[2019-02-07] MEDS: Ascorbic Acid 500 MG TABLET PO SCH (07:53)
[2019-02-07] MEDS: Aspirin Enteric Coated 81 MG Tablet PO SCH (07:53)
[2019-02-07] MEDS: Cholecalciferol (D-3) 1,000 UNIT (25MCG) TABLET PO SCH (07:53)
[2019-02-07] MEDS: Metoprolol XL (24 HR) Succ 25 MG TAB.ER.24H PO SCH (07:53)
[2019-02-07] MEDS: Loratadine 10 MG TABLET PO SCH (07:53)
[2019-02-07] MEDS: Furosemide 20 MG TABLET PO SCH (07:53)
[2019-02-07] MEDS: traMADol 50 MG TABLET PO PRN (07:59)
--- NOTE | 2019-02-07 10:02 | Physician Discharge Referral ---
Home Health/Hosp Referral Info Transfer to: Home Health Provider in Charge Post Discharge: PCP - Diagnosis (1) Gangrene of toe of left foot Priority: Primary Status: Acute (2) CHF exacerbation Priority: Secondary Status: Chronic (3) COPD exacerbation Priority: Secondary Status: Chronic (4) Chronic kidney disease, stage 3 Priority: Secondary Status: Chronic (5) Atrial fibrillation Priority: Secondary Status: Chronic (6) CAD (coronary artery disease) Priority: Secondary Status: Chronic - Respiratory Orders Oxygen / L per min (2 LPM NC prn for dyspnea and at night) Smoking Cessation: Smoking cessation has been advised. For more information, call the [place] Tobacco Quit Line at 9-312-YZCE-NOW. - Diet/Nutrition Diet/Nutrition Orders: No Added Salt (DEBORA), Cardiac - Activity Activity Orders: Up ad leno, Chair, Walker - Services Needed Following services are medically necessary services: Nursing, Physical Therapy, Occupational Therapy - Transfer Medications Home Medications: Ascorbic Acid [Vitamin C with Chasity Hips] 500 mg PO BID 08/03/16 [History] Ferrous Sulfate [Iron] 325 mg PO BID 08/03/16 [History] Simvastatin [Zocor] 20 mg PO HS 08/03/16 [History] Vitamin E 800 unit PO DAILY 08/03/16 [History] Loratadine [Allergy Relief] 10 mg PO DAILY 06/12/17 [History] Cholecalciferol (D-3) [Vitamin D] 2,000 unit PO DAILY 11/13/17 [History] Aspirin Enteric Coated [Aspirin EC] 81 mg PO DAILY tablet. 11/23/17 [Rx] Clopidogrel Bisulfate [Plavix] 75 mg PO DAILY 30 Days #30 tablet 11/23/17 [Rx] Pantoprazole Sodium [Protonix] 40 mg PO BID 03/19/18 [History] Metoprolol XL (24 HR) Succ [Toprol Xl] 25 mg PO DAILY 06/01/18 [History] Albuterol Sulfate [Proventil Inhaler] 2 puff IH Q6HR PRN 12/25/18 [History] Docusate [Colace] 100 mg PO BID PRN 12/25/18 [History] Furosemide [Lasix] 40 mg PO DAILY #30 tablet 12/27/18 [Rx] Allergies/Adverse Reactions: Allergy/AdvReac Type Severity Reaction Status Date / Time No Known Allergies Allergy Verified 12/03/18 14:44 Certification: Further, I certify that my clinical findings support that this patient is homebound (i.e. absences from home require considerable and taxing effort and are for medical reasons or yazidism services or infrequently or short duration when for other reasons) because: Homebound Reason: Leaving home requires considerable and taxing effort due to condition Attestation: My signature below is to certify that this patient is under my care and that I, or nurse practitioner, or a physician's assistant professor of dietetics working with me, has a [id number] encounter with this patient.
[2019-02-07 10:37] VITALS: BP 138/82
--- NOTE | 2019-02-07 11:54 | Discharge Summary ---
Date of Encounter: 02/07/19 Time of Encounter: 11:51 - Discharge Diagnosis (1) Gangrene of toe of left foot Priority: Primary Status: Acute Comments: Patient with severe peripheral vascular disease and was evaluated at the [facility] for a necrotic second toe on the left foot. No surgical intervention was attempted. Documented osteomyelitis was reported and he was continued on doxycycline. The plan from surgeon was to allow the toe to auto amputate on its own. Patient continues to have a dressing to his left foot remains dry and intact. Patient has complained of pain has been persistent since his discharge from hospital, but he states is tolerable with current medications. Patient has been bearing weight on the left foot. Patient will continue with therapy through home health services and will continue his follow-up with his PCP and the surgeon from [facility]. (2) CHF exacerbation Priority: Secondary Status: Chronic Comments: Patient with long history of CHF and cardiomyopathy. Patient has experienced dyspnea with exertion, but appears relaxed while at rest. Patient continues to have chronic fine rales heard lower moreno. His weights have been stable during his stay. No edema noted to extremities. Patient has denied any palpitations or chest discomforts. We will continue with current medications after discharge and he is to follow-up with his PCP and cardiology. Qualifiers: Heart failure type: systolic Qualified Code(s): I50.23 - Acute on chronic systolic (congestive) heart failure (3) COPD exacerbation Priority: Secondary Status: Chronic Comments: No acute issues during his stay of facility. Patient continues with dyspnea on exertion and chronic basilar rales. No productive cough. Patient will continue with current medications at time of discharge and will follow-up with his PCP. (4) Chronic kidney disease, stage 3 Priority: Secondary Status: Chronic Comments: No acute issues during his stay of facility. Patient will continue with current medications and follow-up with his PCP. (5) Atrial fibrillation Priority: Secondary Status: Chronic Comments: No acute issues during his stay. Patient's heart rate has remained controlled with a ventricular rate less than 100. Discharge on current medications and anticoagulation. Patient is to continue follow-up with his claim examiner and PCP (6) CAD (coronary artery disease) Priority: Secondary Status: Chronic Qualifiers: Coronary Disease-Associated Artery/Lesion type: [place] artery [place] vs. transplanted heart: [place] heart Associated angina: without angina Qualified Code(s): I25.10 - Atherosclerotic heart disease of [place] coronary artery without angina pectoris Hospital course: Mr. Canas is a 83 year old male , who was treated at [facility] for osteomyelitis of the second left toe. Patient has been treating a nonhealing ulcer of the left second toe for over a year. Patient states that he had had a fall at home prior to his admission during which time he had a laceration on the left anterior leg which required treatment at [facility] locally. After treatment patient was discharged to home. Over the period of several days began to develop pain to his left foot and also had developed hypotension. Patient has a long history of severe CHF, CAD, COPD, home oxygen dependency, ICD/pacemaker, CVA, atrial fibrillation, PUD, BPH and severe PVD. Patient was reevaluated by [place] and found to have osteomyelitis of the second toe and was transferred to [facility] for further evaluation and treatment. Patient was treated with IV antibiotics during his stay he continues on oral doxycycline for the next 4 days. Patient currently states that he has moderate pain to the left second toe which currently appears darkened and necrotic. Patient states that he was told that he was not a surgical candidate at this time and described a treatment plan by [facility] in which he would auto amputate the toe. Patient states that he was told he was a poor surgical candidate due to his severe CHF and pulmonary status. Patient appears relaxed and denies any dyspnea, palpitations or chest discomforts. Patient states that he has oxygen dependency but can usually ambulate greater than 100 feet before he becomes dyspneic. Patient states usually he develops claudication to the legs after ambulating distances. Patient states long history of BPH and that he self catheters several times daily. Patient denies any other issues, but does state that he has had increased generalized weakness since his hospitalization. Patient has progressed with his therapy during his stay of facility., But continues to have dyspnea with exertion. He continues with chronic fine rales to his basilar moreno. No productive cough. He has remained afebrile during his stay. Did experience anemia earlier during his admission and received packed RBCs and tolerated well. Patient's serial labs have shown his hemoglobin to stabilize and no further treatment was required. No changes have been noted to his left second toe. Patient has finished his doxycycline dosing per discharge orders from [facility]. Patient is continues follow-up with surgery at [facility] after discharge. He will be discharged with his current medications and has been instructed to follow-up with his PCP in one week to continue risk man agement. Patient with an extensive cardiac history and was instructed to follow-up with his claim examiner after discharge. Discharge discussed with: patient - Time Spent with Patient Total time spent providing and/or coordinating discharge services: Time spent: Less than 30 minutes - Discharge Medications Prescriptions: No Action Loratadine [Allergy Relief] 10 mg PO DAILY Cholecalciferol (D-3) [Vitamin D] 2,000 unit PO DAILY Aspirin Enteric Coated [Aspirin EC] 81 mg PO DAILY tablet. Clopidogrel Bisulfate [Plavix] 75 mg PO DAILY 30 Days #30 tablet Pantoprazole Sodium [Protonix] 40 mg PO BID Metoprolol XL (24 HR) Succ [Toprol Xl] 25 mg PO DAILY Albuterol Sulfate [Proventil Inhaler] 2 puff IH Q6HR PRN PRN Reason: sob/wheezing Docusate [Colace] 100 mg PO BID PRN PRN Reason: Constipation Furosemide [Lasix] 40 mg PO DAILY #30 tablet Simvastatin [Zocor] 20 mg PO HS Vitamin E 800 unit PO DAILY Ferrous Sulfate [Iron] 325 mg PO BID Ascorbic Acid [Vitamin C with Chasity Hips] 500 mg PO BID Home Medications: Ascorbic Acid [Vitamin C with Chasity Hips] 500 mg PO BID 08/03/16 [History] Ferrous Sulfate [Iron] 325 mg PO BID 08/03/16 [History] Simvastatin [Zocor] 20 mg PO HS 08/03/16 [History] Vitamin E 800 unit PO DAILY 08/03/16 [History] Loratadine [Allergy Relief] 10 mg PO DAILY 06/12/17 [History] Cholecalciferol (D-3) [Vitamin D] 2,000 unit PO DAILY 11/13/17 [History] Aspirin Enteric Coated [Aspirin EC] 81 mg PO DAILY tablet. 11/23/17 [Rx] Clopidogrel Bisulfate [Plavix] 75 mg PO DAILY 30 Days #30 tablet 11/23/17 [Rx] Pantoprazole Sodium [Protonix] 40 mg PO BID 03/19/18 [History] Metoprolol XL (24 HR) Succ [Toprol Xl] 25 mg PO DAILY 06/01/18 [History] Albuterol Sulfate [Proventil Inhaler] 2 puff IH Q6HR PRN 12/25/18 [History] Docusate [Colace] 100 mg PO BID PRN 12/25/18 [History] Furosemide [Lasix] 40 mg PO DAILY #30 tablet 12/27/18 [Rx] Allergies/Adverse Reactions: Allergy/AdvReac Type Severity Reaction Status Date / Time No Known Allergies Allergy Verified 12/03/18 14:44 Date of admission: 01/15/19 13:53 Primary care physician: Mukesh Garcia MD Consults: 01/15/19 14:55 Consult to Nutrition [CONS] Routine Comment: Consulting Provider: NUTRITION Reason for Dietary Consult: PO Supplementation 01/15/19 14:56 Consult to Occupational Therapy [CONS] Routine Comment: Evaluate, develop and implement POC Reason for Consult: discharge readiness Does patient have active BEDREST order?: No Is patient medically & hemodynamically stable?: Yes Patient assessed for mobility or mobilized this visit?: No Consult to Physical Therapy [CONS] Routine Comment: Evaluate, develop and implement POC Reason for Consult: discharge readiness Does patient have active BEDREST order?: No Is patient medically & hemodynamically stable?: Yes Patient assessed for mobility or mobilized this visit?: No Consult to Recreational Therapy [CONS] Routine Comment: Evaluate, develop and implement POC Consult to Emergency Doctor [CONS] Routine Reason for SW Consult: discharge readiness 01/29/19 10:39 Consult to Psychology [CONS] Routine Consulting Provider: Emanuel Pizano Reason for Consult: patient with possible depression Time Notified: 10:39 Call Completed: No Discharging clinician: Emanuel Pizano - Constitutional Vitals: Temp Pulse Resp BP Pulse Ox 97.6 F 79 16 138/82 93 02/07/19 10:36 02/07/19 10:36 02/07/19 10:36 02/07/19 10:36 02/07/19 10:36 General appearance: Present: cooperative, A&O X 3, pleasant, no acute distress, answers questions appropriately - Head Head exam: Present: atraumatic, normocephalic - Eye Eye exam: Present: PERRL, conjuntiva pink, sclera anicteric Pupils: Present: PERRL - Neck Neck exam general surgery: Present: supple, trachea midline. Absent: lymphadenopathy - Respiratory Respiratory exam: Present: decreased breath sounds, CTAB, rales. Absent: accessory muscle use, rhonchi, wheezes Additional comments: Patient continues with diminished breath sounds to his lower moreno and noted fine basilar rales posteriorly. Respiratory effort appears relaxed. No productive cough. - Cardiovascular Cardiovascular exam: Present: irregular rhythm, RRR, +S1, +S2. Absent: diastolic murmur, gallop, rubs, systolic murmur Additional comments: Heart rate remains irregular with a controlled ventricular rate less than 100. - GI/Abdominal GI/Abdominal exam: Present: normal bowel sounds, soft, no peritoneal signs. Absent: distended, tenderness - Extremities Exam Extremities exam: Present: warm, radial pulses palpable and symmetrical. Absent: calf tenderness, cyanotic, pedal edema Additional comments: Left foot with dressing remains dry and intact. - Neurological Exam Neurological exam: Present: CN II-XII intact, oriented X3, no focal deficits. Absent: pronater drift, facial droop, speech deficit - Skin Skin exam: Present: dry, intact - Patient Status Disposition: Home Health Service Condition: Good Functional capacity at discharge: uses cane/walker Overall status at discharge: patient is progressing back to baseline - Discharge Instructions Follow Up With: Mukesh Garcia MD [Primary Care Provider] - 02/13/19 3:00 pm (Paige Redd NP) - Diet and Activity Activity: as per physical therapy, increase activity as tolerated Diet: low fat, low cholesterol, low salt diet
== END 2019-02-07 15:56 | disposition home health service (06) | DRG 299 ==
LOC: INPGRE 01-15 13:53